=== PATIENT | male | born 1980 | race Caucasian/White ===

== ENCOUNTER 2021-06-06 18:55 | Inpatient (IN) | payer MEDICAID, SELFPAY ==
[~2021-06-06] VITALS: Ht 180.3 cm; Wt 119.1 kg
--- NOTE | 2021-06-06 19:00 | NUR ---
Patient to ER bed 3 to gown for evaluation. Side rails up.
--- NOTE | 2021-06-06 19:05 | NUR ---
DR LUGO IN TO ASSESS
--- NOTE | 2021-06-06 19:08 | NUR ---
Patient BIB by family from home. C/O chest pain x today. Patient reported, had chest pain since 0200 AM today, Hx CHF (6 months ago and COVID-19 positive) A/O,X4, left chest pain, pain rate 7/10, per patient weakness, place patient on desk monitor and pulse ox, on canula 2 L/min.
--- NOTE | 2021-06-06 19:21 | NUR ---
X-ray at bedside.
[2021-06-06 19:23] VITALS: BP_SYST 181
[2021-06-06] MEDS ORDERED: ASPIRIN 325 MG TABLET (ECOTRIN) PO ONE (19:30)
[2021-06-06] MEDS ORDERED: HYDROcodone/ACETAMIN 5-325 MG TAB (NORCO/ VICODIN) PO ONE (19:30)
--- NOTE | 2021-06-06 19:34 | NUR ---
Blood for labwork drawn from instructor trainer canine service. Patient tolerated well.
[2021-06-06 19:54] LABS: BASOPHILS # (AUTO) 0.1 K/uL (0.0-0.2); BASOPHILS % (AUTO) 0.7 % (0.0-2.0); EOSINOPHILS # (AUTO) 0.1 K/uL (0.0-0.4); EOSINOPHILS % (AUTO) 0.4 % (0.0-4.0); HEMATOCRIT 27.1 % (36-54); HEMOGLOBIN 9.4 g/dL (14.0-18.0); LYMPHOCYTES # (AUTO) 0.9 K/uL (1.0-5.5); MEAN CORPUSCULAR HEMOGLOBIN 30 pg (27-31); MEAN CORPUSCULAR HGB CONC 35 % (32-36); MEAN CORPUSCULAR VOLUME 87 fL (79.0-98.0); MONOCYTES # (AUTO) 1.1 K/uL (0.0-1.0); NEUTROPHILS # (AUTO) 10.2 K/uL (1.8-7.7); NEUTROPHILS % (AUTO) 82.9 % (40.0-70.0); PLATELET COUNT (AUTO) 192 K/uL (130-430); RED BLOOD CELL COUNT(AUTO) 3.11 MIL/uL (4.2-6.2); RED CELL DISTRIBUTION WIDTH 13.8 % (9.0-15.0); WHITE BLOOD COUNT (AUTO) 12.4 K/uL (4.8-10.8)
--- NOTE | 2021-06-06 22:10 | NUR ---
Dr. Underwood at bedside to exam patient.
[2021-06-06 22:20] LABS: CALCIUM 7.9 mg/dL (8.4-11.0)
[2021-06-06 22:25] LABS: ALBUMIN 2.6 g/dL (3.4-4.8); TOTAL BILIRUBIN 0.7 mg/dL (0.0-1.0)
[2021-06-06] MEDS ORDERED: cloNIDine HCL 0.1 MG TABLET PO PRN (22:30)
[2021-06-06] MEDS ORDERED: PANTOPRAZOLE SODIUM 40 MG TAB PO ONE (22:30)
[2021-06-06] MEDS ORDERED: NITROGLYCERIN 1 INCH (GM) OINT. TP ONE (22:30)
[2021-06-06] MEDS ORDERED: MAG-AL HYDROX/SIMETH 30 ML UDC PO PRN (22:30)
[2021-06-06 22:40] LABS: CREATININE 7.95 mg/dL (0.55-1.30); POTASSIUM 2.2 mmol/L (3.5-5.1)
--- NOTE | 2021-06-06 22:55 | NUR ---
Dr. Underwood at bedside and explain lab results and treatment plan.
[2021-06-06] MEDS ORDERED: KCL 20 mEq in 100 mL (PREMIX) 100 ML IV ONE (23:00)
[2021-06-06] MEDS ORDERED: CARVEDILOL 12.5 MG TABLET (COREG) PO ONE (23:00)
[2021-06-06] MEDS ORDERED: ENOXAPARIN SODIUM 30 MG/0.3 ML SYRINGE SUBCUT SCH (23:00)
[2021-06-06] MEDS ORDERED: POTASSIUM CHLORIDE 20 MEQ in NS 250 ML IV ONE (23:00)
[2021-06-06] MEDS ORDERED: POTASSIUM CHLORIDE 20 MEQ TAB.PRT.SR PO ONE (23:00)
--- NOTE | 2021-06-06 23:01 | NUR ---
COVID-19 swab collected and sent to lab.
[2021-06-06] MEDS ORDERED: CARV12.548 PO (23:12)
[2021-06-06] MEDS ORDERED: CLON0.5T4 PO (23:12)
[2021-06-06] MEDS ORDERED: HYDR-4037 PO (23:12)
[2021-06-06] MEDS ORDERED: TORS20TA23 PO (23:12)
[2021-06-06] MEDS ORDERED: NIFE20CA PO (23:12)
--- NOTE | 2021-06-06 23:12 | NUR ---
Medication reconciliation completed with information provided by patient. Any prior medication reconciliation on file was reviewed and corrected.
--- NOTE | 2021-06-06 23:22 | NUR ---
Called Dr. Underwood reported critical lab results.
[2021-06-06 23:23] LABS: PROTHROMBIN TIME 10.3 SECS (9.5-12.5)
[2021-06-06] MEDS ORDERED: HEPARIN SODIUM,PORCINE 2000 UNITS/0.4 ML BOLUS IVP PRN (23:45)
[2021-06-06] MEDS ORDERED: HEPARIN SODIUM,PORCINE 5,000 UNITS/ML VIAL IV ONE (23:45)
[2021-06-06] MEDS ORDERED: HEPARIN 25,000 UNITS in 250 ML PREMIX IV PRN (23:45)
[2021-06-06] MEDS ORDERED: HEPARIN SODIUM,PORCINE 3000 UNITS/0.6 ML BOLUS IVP PRN (23:45)
--- NOTE | 2021-06-06 23:58 | NUR ---
Patient will be admitted to care of Dr. Underwood. Admitted to TELE unit. Will go to room 107A. Belongings list completed. Complete and up to date summary report printed. SBAR report to be given at bedside with opportunity for questions.
[2021-06-07] VITALS (9 sets, daily range): BP systolic 136–211
--- NOTE | 2021-06-07 00:15 | NUR ---
ADMIT NOTE Received pt from ER to the floor with a diagnosis of CHEST PAIN. Admission process initiated. patient oriented to pain management, safety and call light-teach back done.
[2021-06-07] MEDS: ACETAMINOPHEN 325 MG TABLET PO PRN ×3 (00:48→23:55)
--- NOTE | 2021-06-07 01:13 | NUR ---
HEPARIN HEPARIN DRIP INITIATED ORDERED. POSSIBLE RISKS OF HEPARIN INFUSION DISCUSSED WITH PATIENT AND INSTRUCTED TO REPORT IMMEDIATELY TO STAFF ANY S/S OF BLEEDING. PATIENT VERBALIZES UNDERSTANDING. ORDERED FOLLOW UP PTT AFTER 6 HOURS.
--- NOTE | 2021-06-07 01:31 | NUR ---
CARDIO CONSULT Consult for Dr. Kemp was called, RE: chest pain JAVIER Jett
--- NOTE | 2021-06-07 01:31 | NUR ---
NEPHRO CONSULT Consult for Dr. Davenport was called, RE: Renal Failure JAVIER Jett
--- NOTE | 2021-06-07 01:41 | NUR ---
TROP RECEIVED TROPONIN RESULTS FROM LAB 0.[address] GARCIA.
--- NOTE | 2021-06-07 01:57 | NUR ---
Paged Dr. Underwood [phone] JAVIER Liu Addendum: 06/07/21 at 0219 by Lita Mcwilliams RN 2nd page for Dr. Underwood s/w Gene- she did connected the call
--- NOTE | 2021-06-07 02:18 | NUR ---
NOTIFICATION SPOKE WITH DR. GARCIA MADE AWARE OF TROPONIN RESULTS. NO NEW ORDER GIVEN.
--- NOTE | 2021-06-07 05:55 | NUR ---
URINE URINE SPECIMEN SENT TO LAB FOR DRUG SCREEN AND URINALYSIS.
[2021-06-07 06:24] LABS: BILIRUBIN,URINE NEGATIVE (NEGATIVE); BLOOD, URINE NEGATIVE (NEGATIVE); CLARITY/URINE CLEAR (CLEAR); COLOR,URINE YELLOW (YELLOW); GLUCOSE,URINE TRACE (NEGATIVE); KETONES,URINE NEGATIVE (NEGATIVE); LEUKOCYTE ESTERASE ,URINE NEGATIVE (NEGATIVE); NITRITE, URINE NEGATIVE (NEGATIVE); PROTEIN URINE 2+ (NEGATIVE); UROBILINOGEN,URINE 0.2 (0.2-1.0)
[2021-06-07 06:29] LABS: RBC,URINE 0-3 /HPF (0-3); WBC,URINE 0-3 /HPF (0-3)
[2021-06-07 06:30] LABS: BACTERIA,URINE FEW /HPF (None Seen)
[2021-06-07 06:33] LABS: BARBITURATE, URINE NEGATIVE (NEG <=200); BENZODIAZEPINE, URINE NEGATIVE (NEG <=150); CANNABINOID, URINE NEGATIVE (NEG <=50); COCAINE, URINE NEGATIVE (NEG <=150); METHAMPHETAMINES SCREEN,URINE POSITIVE (NEG <=500); OPIATE, URINE NEGATIVE (NEG <=100); PHENCYCLIDINE SCREEN,URINE NEGATIVE (NEG <=25); UR TRICYCLIC ANTIDEPRESSANTS NEGATIVE (NEG <=300); URINE AMPHETAMINE NEGATIVE (NEG <=500); URINE METHADONE NEGATIVE (NEG <=200); URINE OXYCODONE SCREEN NEGATIVE (NEG <=100); URINE PROPOXYPHENE SCREEN NEGATIVE (NEG <=300)
--- NOTE | 2021-06-07 06:55 | NUR ---
CLOSING NOTES PATIENT AWAKE IN BED. NO DISTRESS NOTED. PATIENT NEEDS ATTENDED. CALL LIGHT WITH IN REACH.
[2021-06-07] MEDS: PANTOPRAZOLE SODIUM 40 MG TAB PO SCH ×2 (08:03→20:54)
[2021-06-07] MEDS: CARVEDILOL 12.5 MG TABLET (COREG) PO SCH ×2 (08:04→20:53)
[2021-06-07 08:06] LABS: ALBUMIN 2.4 g/dL (3.4-4.8); CALCIUM 7.9 mg/dL (8.4-11.0); TOTAL BILIRUBIN 0.7 mg/dL (0.0-1.0)
--- NOTE | 2021-06-07 08:07 | NUR ---
INITIAL ROUNDS Received pt AAOx4, no s/s resp distress, c/o mild chest pain-will give pain medication as ordered. Plan of care for the day reviewed with pt-pt verbalized his understanding. Heparin drip infusing well to ANGELA at ordered rate with no S/S infiltration to site. Pain management, disease process, skin and safety discussed-teach back done. Call light within reach.
[2021-06-07 08:18] LABS: BASOPHILS # (AUTO) 0.1 K/uL (0.0-0.2); BASOPHILS % (AUTO) 0.7 % (0.0-2.0); EOSINOPHILS # (AUTO) 0.2 K/uL (0.0-0.4); EOSINOPHILS % (AUTO) 1.7 % (0.0-4.0); HEMATOCRIT 25.4 % (36-54); HEMOGLOBIN 8.7 g/dL (14.0-18.0); LYMPHOCYTES % (AUTO) 10.8 % (20.5-51.5); MEAN CORPUSCULAR HEMOGLOBIN 30 pg (27-31); MEAN CORPUSCULAR HGB CONC 34 % (32-36); MEAN CORPUSCULAR VOLUME 87 fL (79.0-98.0); MONOCYTES # (AUTO) 0.9 K/uL (0.0-1.0); MONOCYTES % (AUTO) 9.8 % (1.7-9.3); NEUTROPHILS # (AUTO) 7.4 K/uL (1.8-7.7); PLATELET COUNT (AUTO) 186 K/uL (130-430); RED BLOOD CELL COUNT(AUTO) 2.92 MIL/uL (4.2-6.2); RED CELL DISTRIBUTION WIDTH 14.1 % (9.0-15.0); WHITE BLOOD COUNT (AUTO) 9.6 K/uL (4.8-10.8)
--- NOTE | 2021-06-07 09:18 | NUR ---
TO VQ SCAN Pt left floor via wheelchair, accompanied by RN due to Heparin drip to Ct in no distress.
[2021-06-07 09:37] LABS: CREATININE 8.42 mg/dL (0.55-1.30); POTASSIUM 2.3 mmol/L (3.5-5.1)
--- NOTE | 2021-06-07 10:20 | NUR ---
BACK FROM VQ SCAN Pt back from scan in no distress. Heparin drip D/C'd as ordered by Dr. Kemp. Ultrasound now in room to do renal ultrasound.
[2021-06-07] MEDS ORDERED: POTASSIUM CHLORIDE 20 MEQ TAB.PRT.SR PO ONE ×2 (11:45→15:30)
[2021-06-07] MEDS ORDERED: KETOROLAC TROMETHAMINE 10 MG TABLET (TORADOL) PO SCH (15:15)
[2021-06-07] MEDS ORDERED: clonazePAM 0.5 MG TABLET ONE (15:55)
--- NOTE | 2021-06-07 15:59 | NUR ---
ANXIETY/MD Pt c/o feeling very anxious-stating he can not breath, note pt's SAO2 95% on O2 6L via oxymizer. Pt given Klonopin as ordered. Pt HOB elevated and pt educated and encouraged to take slow, deep breaths. Light turned down low and door closed to promote rest. Call light within reach. Dr. Davenport saw pt and informed pt that if his labs do not improve he may need to go on dialysis. New labs ordered.
--- NOTE | 2021-06-07 16:36 | NUR ---
COUGHING UP BLOOD/SOB Pt c/o shortness of breath, noted pt's SAO2 96% on O2 6L via oxymizer. Pt just coughed up frothy, bright red blood. MD called, awaiting call back.
--- NOTE | 2021-06-07 17:32 | NUR ---
CONSULTATION PAGED/CALLED Reason for Consultation: [] HEMOPTYSIS Person Who was Notified: [] UNIQUE Consulting Physician: [] DR ASCENCIO Wood Heel Attacher Specialty: [] PULMO Ordering Physician: [] DR GARCIA
--- NOTE | 2021-06-07 17:50 | NUR ---
RESP/MD Pt c/o shortness of breath, SAO2 96% on O2 6L via Oxymizer, pt coughing up small droplets of thin, frothy bright red blood. Dr. Underwood informed and shown blood. Dr. Nunes (pulmonary consult informed and order given fro stat CT scan of chest without contrast ordered-pt now on his way to CT.
[2021-06-07] MEDS ORDERED: IPRATROPIUM/ALBUTEROL SULFATE 3 ML AMPUL.NEB (DUONEB) INH PRN (18:00)
[2021-06-07 18:40] LABS: BASOPHILS # (AUTO) 0.1 K/uL (0.0-0.2); BASOPHILS % (AUTO) 0.2 % (0.0-2.0); EOSINOPHILS # (AUTO) 0.2 K/uL (0.0-0.4); EOSINOPHILS % (AUTO) 1.1 % (0.0-4.0); HEMATOCRIT 27.6 % (36-54); HEMOGLOBIN 9.4 g/dL (14.0-18.0); LYMPHOCYTES # (AUTO) 0.7 K/uL (1.0-5.5); LYMPHOCYTES % (AUTO) 3.1 % (20.5-51.5); MEAN CORPUSCULAR HEMOGLOBIN 30 pg (27-31); MEAN CORPUSCULAR HGB CONC 34 % (32-36); MEAN CORPUSCULAR VOLUME 87 fL (79.0-98.0); MONOCYTES % (AUTO) 4.6 % (1.7-9.3); PLATELET COUNT (AUTO) 231 K/uL (130-430); RED BLOOD CELL COUNT(AUTO) 3.16 MIL/uL (4.2-6.2); RED CELL DISTRIBUTION WIDTH 14.2 % (9.0-15.0); WHITE BLOOD COUNT (AUTO) 20.9 K/uL (4.8-10.8)
[2021-06-07 18:50] LABS: CALCIUM 7.9 mg/dL (8.4-11.0); POTASSIUM 3.2 mmol/L (3.5-5.1)
[2021-06-07 18:54] LABS: CREATININE 8.39 mg/dL (0.55-1.30)
--- NOTE | 2021-06-07 18:59 | NUR ---
RESP/ Pt seen by RT, given breathing treatment, pt now on O2 15L via NRB mask. Pt sitting up in bed, remains anxious. Spoke with Dr. Nunes and informed him of pt's ABG results and informed him that pt will be transferred to ICU per Dr. Underwood's order due to pt c/o shortness of breath and pt desaturation to 81% SAO2 when he laid down flat.
[2021-06-07] MEDS: IPRATROPIUM/ALBUTEROL SULFATE 3 ML AMPUL.NEB (DUONEB) INH SCH ×2 (19:00→23:32)
--- NOTE | 2021-06-07 19:25 | NUR ---
PT TRANSFERRED TO ICU At 1915 pt transferred to ICU Bed 6 on 15L NRB mask via wheelchair. Pt placed on ICU bed and placed on 15L O2 via NRB mask. Pt remains anxious. Report given to IRRIGATION EQUIPMENT REMOVER. Pt's belongings taken to room.
--- NOTE | 2021-06-07 19:30 | NUR ---
REFUSED MED Pt refused 40 mEq K+ tablets, Dr. Underwood called, awaiting call back.
[2021-06-07] MEDS ORDERED: hydrALAZINE HCL 20 MG/ML VIAL IVP PRN (20:15)
[2021-06-07] MEDS ORDERED: hydrALAZINE HCL 10 MG TABLET ONE (20:29)
[2021-06-07] MEDS: MORPHINE 4 MG INJ. 4 MG/ML VIAL IVP PRN (20:49)
[2021-06-07 21:00] LABS: INR 0.9 (0.80-1.20); PROTHROMBIN TIME 9.7 SECS (9.5-12.5)
[2021-06-07] MEDS ORDERED: hydrALAZINE HCL 10 MG TABLET PO SCH ×2 (21:00)
[2021-06-07] MEDS ORDERED: clonazePAM 0.5 MG TABLET PO SCH (21:00)
[2021-06-07] MEDS ORDERED: ENOXAPARIN SODIUM 40 MG/0.4 ML SYRINGE SUBCUT SCH (21:00)
[2021-06-07] MEDS ORDERED: CARVEDILOL 12.5 MG TABLET (COREG) PO SCH (21:00)
--- NOTE | 2021-06-07 21:03 | NUR ---
[address] GARCIA SPOKE TO HIM WITH ORDERS MADE AND CARRIED OUT, SPOKE WITH DR VILLAGOMEZ HE WILL CALL BACK FOR LAB RESULTS MAY COME IN TONIGHT TO PLACE A HD CATH AWAITING FOR COAG RESULTS.
--- NOTE | 2021-06-07 21:04 | NUR ---
2030 CALLED DOT UPDATED AND ADVISED NO VISITING AT THIS TIME TILL COVID PCR RESULTS IN WITH NEGATIVE RESULTS.
--- NOTE | 2021-06-07 22:04 | NUR ---
2144 MOM KARL AG SPOKE TO HER UPSET BEC WERE TREATING THE SON PUI THEY DONT WANT THAT BUT EXPLAINED TO THEM BEC HE HAS PRESENTING COVID SYMPTOMS, TO BE SAFE WE HAVE TO WAIT FOR PCR RESULTS, THEY ARE MAD BEC WHY HE IS COUGHING THIS TIME HE CAME IN WITH SOB AND CHEST PAIN FOR HIS CHF THATS WHAT THEY KNOW. THEY ARE UNREALISTIC THEY DONT BELIEVE IN COVID AND THEY DONT WANT HIM TO GET A COVID VACCINE EITHER.
--- NOTE | 2021-06-07 22:08 | NUR ---
2150 S/B DR VILLAGOMEZ LAB RESULTS SEEN SPOKE TO PATIENT, ADVISED TO GET HD CATHETER PLACEMENT LOAN BY DR. LOWERY OR DR CHILDRESS NOTHING URGENT TONIGHT, CONT CURRENT TRETMENT AND MADE SOME ORDERS SEE CPOE.
[2021-06-07] MEDS ORDERED: PIPERACILLIN/TAZOBACTAM 2.25 GM VIAL IV ONE (23:06)
[2021-06-07] MEDS: PIPERACILLIN/TAZO 2.25G/DEX-IS 50 ML IV SCH (23:07)
[2021-06-07] MEDS: hydrALAZINE HCL 20 MG/ML VIAL IVP PRN (23:08)
[2021-06-07] MEDS ORDERED: *HEPARIN PER PHARMACY XX PRN (23:30)
[2021-06-08] VITALS (24 sets, daily range): BP systolic 152–209
[2021-06-08] MEDS: IPRATROPIUM/ALBUTEROL SULFATE 3 ML AMPUL.NEB (DUONEB) INH SCH ×5 (03:00→19:00)
[2021-06-08] MEDS ORDERED: PIPERACILLIN/TAZOBACTAM 2.25 GM VIAL IV ONE (03:35)
[2021-06-08] MEDS: hydrALAZINE HCL 20 MG/ML VIAL IVP PRN ×3 (04:57→21:40)
[2021-06-08] MEDS: PIPERACILLIN/TAZO 2.25G/DEX-IS 50 ML IV SCH ×3 (05:53→21:39)
[2021-06-08] MEDS: MORPHINE 4 MG INJ. 4 MG/ML VIAL IVP PRN ×3 (05:56→20:23)
[2021-06-08] MEDS: cloNIDine HCL 0.1 MG TABLET PO PRN ×3 (05:57→23:45)
--- NOTE | 2021-06-08 05:59 | NUR ---
PAGED FOR CONSULT ORDERING PHYSICIAN: REASON FOR CONSULT: SHANT CATH PLACEMENT DIALED: [phone] SPOKE TO: CALLED, DOCTOR DID NOT ADOPTION MANAGER AND CALL GOT DISCONNECTED. WILL ENDORSE TO RELIEF LUNCHROOM AIDE
[2021-06-08 06:19] LABS: BASOPHILS # (AUTO) 0.1 K/uL (0.0-0.2); BASOPHILS % (AUTO) 0.4 % (0.0-2.0); EOSINOPHILS % (AUTO) 0.2 % (0.0-4.0); HEMATOCRIT 24.8 % (36-54); HEMOGLOBIN 8.4 g/dL (14.0-18.0); LYMPHOCYTES # (AUTO) 0.8 K/uL (1.0-5.5); LYMPHOCYTES % (AUTO) 5.2 % (20.5-51.5); MEAN CORPUSCULAR HEMOGLOBIN 30 pg (27-31); MEAN CORPUSCULAR HGB CONC 34 % (32-36); MEAN CORPUSCULAR VOLUME 88 fL (79.0-98.0); MONOCYTES # (AUTO) 0.8 K/uL (0.0-1.0); NEUTROPHILS # (AUTO) 14.1 K/uL (1.8-7.7); NEUTROPHILS % (AUTO) 89.2 % (40.0-70.0); PLATELET COUNT (AUTO) 173 K/uL (130-430); RED BLOOD CELL COUNT(AUTO) 2.83 MIL/uL (4.2-6.2); RED CELL DISTRIBUTION WIDTH 13.9 % (9.0-15.0); WHITE BLOOD COUNT (AUTO) 15.8 K/uL (4.8-10.8)
[2021-06-08 06:44] LABS: ALBUMIN 2.2 g/dL (3.4-4.8); TOTAL BILIRUBIN 0.7 mg/dL (0.0-1.0)
--- NOTE | 2021-06-08 06:52 | NUR ---
2892 DR VILLAGOMEZ CALLED ASK FOR PT UPDATE ADVISED TO CALL HIM DI WHEN LAB RESULTS IN AND ASK DR. ASCENCIO TO PUT A SHANT CATH IN AM, CALLED DR LOWERY FOR CONSULT IN AM FOR SHANT CATH PLACEMENT NO ANSWER.
--- NOTE | 2021-06-08 07:13 | NUR ---
0600 REMAINS COUGHING ON AND OFF BUT NO MORE BLOOD STREAK [facility] EARLY LAST NIGHT COUGHING WITH BLOOD STREAK DR. GARCIA AWARE.
[2021-06-08 07:19] LABS: CREATININE 8.58 mg/dL (0.55-1.30); POTASSIUM 2.7 mmol/L (3.5-5.1)
[2021-06-08] MEDS: PANTOPRAZOLE SODIUM 40 MG TAB PO SCH ×2 (08:11→20:19)
[2021-06-08] MEDS: CARVEDILOL 12.5 MG TABLET (COREG) PO SCH ×2 (08:19→20:21)
[2021-06-08] MEDS ORDERED: DIATR MEGLU/DIATRIZ SOD 30 ML SOLUTION PO ONE (08:28)
[2021-06-08] MEDS ORDERED: hydrALAZINE HCL 25 MG TABLET PO SCH (09:00)
[2021-06-08] MEDS: POTASSIUM CHLORIDE 20 MEQ TAB.PRT.SR PO SCH ×2 (09:42→20:20)
--- NOTE | 2021-06-08 10:17 | NUR ---
1000 PT PLACED ON 12L OXYMZER PER DR MURPHY TITRATION OFF HI FLOW ORDERS. SAT 94% HR 80 RR 27. RN AWARE, WILL CONT TO MONITOR. Addendum: 06/08/21 at 1020 by Daniella Branham RT Amended: Links added. Addendum: 06/08/21 at 1155 by Daniella Branham RT CORRECTION: PER DR ASCENCIO.
[2021-06-08] MEDS: hydrALAZINE HCL 25 MG TABLET PO SCH ×2 (15:23→20:20)
[2021-06-08] MEDS: AZITHROMYCIN 500 MG in NS 250 ML IV SCH (18:57)
[2021-06-09] VITALS (12 sets, daily range): BP systolic 129–172
[2021-06-09] MEDS: hydrALAZINE HCL 20 MG/ML VIAL IVP PRN (03:31)
[2021-06-09] MEDS: PIPERACILLIN/TAZO 2.25G/DEX-IS 50 ML IV SCH (05:11)
[2021-06-09] MEDS: MORPHINE 4 MG INJ. 4 MG/ML VIAL IVP PRN ×2 (05:49→13:26)
[2021-06-09 06:33] LABS: BASOPHILS # (AUTO) 0.1 K/uL (0.0-0.2); BASOPHILS % (AUTO) 0.6 % (0.0-2.0); EOSINOPHILS # (AUTO) 0.3 K/uL (0.0-0.4); EOSINOPHILS % (AUTO) 2.3 % (0.0-4.0); HEMOGLOBIN 7.3 g/dL (14.0-18.0); LYMPHOCYTES # (AUTO) 0.7 K/uL (1.0-5.5); LYMPHOCYTES % (AUTO) 6.1 % (20.5-51.5); MEAN CORPUSCULAR HEMOGLOBIN 31 pg (27-31); MEAN CORPUSCULAR HGB CONC 34 % (32-36); MEAN CORPUSCULAR VOLUME 90 fL (79.0-98.0); MONOCYTES # (AUTO) 0.8 K/uL (0.0-1.0); MONOCYTES % (AUTO) 7.1 % (1.7-9.3); NEUTROPHILS # (AUTO) 9.2 K/uL (1.8-7.7); NEUTROPHILS % (AUTO) 83.9 % (40.0-70.0); PLATELET COUNT (AUTO) 162 K/uL (130-430); RED BLOOD CELL COUNT(AUTO) 2.37 MIL/uL (4.2-6.2); RED CELL DISTRIBUTION WIDTH 13.8 % (9.0-15.0)
[2021-06-09 06:41] LABS: ALBUMIN 2.2 g/dL (3.4-4.8); CALCIUM 7.9 mg/dL (8.4-11.0); PHOSPHORUS 6.3 mg/dL (2.7-4.5); POTASSIUM 3.3 mmol/L (3.5-5.1); TOTAL BILIRUBIN 0.6 mg/dL (0.0-1.0)
[2021-06-09] MEDS: IPRATROPIUM/ALBUTEROL SULFATE 3 ML AMPUL.NEB (DUONEB) INH SCH ×2 (07:00→11:00)
[2021-06-09 07:23] LABS: HEMATOCRIT 21.3 % (36-54)
[2021-06-09 07:24] LABS: CREATININE 8.61 mg/dL (0.55-1.30)
[2021-06-09] MEDS: POTASSIUM CHLORIDE 20 MEQ TAB.PRT.SR PO SCH ×2 (08:22→21:00)
[2021-06-09] MEDS: CARVEDILOL 12.5 MG TABLET (COREG) PO SCH ×2 (08:25→21:00)
[2021-06-09] MEDS: PANTOPRAZOLE SODIUM 40 MG TAB PO SCH ×2 (08:25→21:00)
[2021-06-09] MEDS: hydrALAZINE HCL 25 MG TABLET PO SCH ×2 (08:26→21:00)
--- NOTE | 2021-06-09 09:35 | NUR ---
RT NOTES Changed sterile water, titrated FIO2 to 0.80. Will monitor pt. RN notified.
[2021-06-09] MEDS: cloNIDine HCL 0.1 MG TABLET PO PRN (11:42)
--- NOTE | 2021-06-09 13:50 | NUR ---
RT NOTES FIO2 TO 0.50
[2021-06-09] MEDS: AZITHROMYCIN 500 MG in NS 250 ML IV SCH (18:00)
[2021-06-09] MEDS ORDERED: ONDANSETRON HCL 4 MG/2 ML VIAL IVP PRN (19:45)
[2021-06-09] MEDS ORDERED: cloNIDine HCL 0.3 MG/24 HR PATCH.TDWK TD SCH (20:00)
[2021-06-09] MEDS ORDERED: ONDANSETRON HCL 4 MG/2 ML VIAL ONE (20:01)
[2021-06-09] MEDS ORDERED: cloNIDine HCL 0.3 MG/24 HR PATCH.TDWK TD ONE (20:05)
[2021-06-09 23:31] LABS: TPROTEIN U,24HR 7034.4 mg/24HR (0-130)
[2021-06-09] MEDS: clonazePAM 0.5 MG TABLET PO PRN (23:56)
[2021-06-10] VITALS (19 sets, daily range): BP systolic 147–183
[2021-06-10] MEDS: hydrALAZINE HCL 20 MG/ML VIAL IVP PRN ×4 (02:53→18:03)
[2021-06-10] MEDS: IPRATROPIUM/ALBUTEROL SULFATE 3 ML AMPUL.NEB (DUONEB) INH SCH ×6 (03:00→23:00)
[2021-06-10] MEDS: MORPHINE 4 MG INJ. 4 MG/ML VIAL IVP PRN ×4 (03:33→20:47)
[2021-06-10] MEDS: clonazePAM 0.5 MG TABLET PO PRN ×2 (06:21→11:26)
[2021-06-10] MEDS: PIPERACILLIN/TAZO 2.25G/DEX-IS 50 ML IV SCH ×2 (06:22→14:31)
[2021-06-10 06:23] LABS: BASOPHILS # (AUTO) 0.1 K/uL (0.0-0.2); BASOPHILS % (AUTO) 1.1 % (0.0-2.0); EOSINOPHILS # (AUTO) 0.1 K/uL (0.0-0.4); EOSINOPHILS % (AUTO) 1.3 % (0.0-4.0); HEMATOCRIT 22.5 % (36-54); HEMOGLOBIN 7.7 g/dL (14.0-18.0); LYMPHOCYTES # (AUTO) 0.7 K/uL (1.0-5.5); LYMPHOCYTES % (AUTO) 7.5 % (20.5-51.5); MEAN CORPUSCULAR HEMOGLOBIN 30 pg (27-31); MEAN CORPUSCULAR HGB CONC 34 % (32-36); MEAN CORPUSCULAR VOLUME 89 fL (79.0-98.0); MONOCYTES # (AUTO) 0.6 K/uL (0.0-1.0); MONOCYTES % (AUTO) 7.3 % (1.7-9.3); NEUTROPHILS # (AUTO) 7.2 K/uL (1.8-7.7); NEUTROPHILS % (AUTO) 82.8 % (40.0-70.0); PLATELET COUNT (AUTO) 154 K/uL (130-430); RED BLOOD CELL COUNT(AUTO) 2.54 MIL/uL (4.2-6.2); RED CELL DISTRIBUTION WIDTH 14.2 % (9.0-15.0); WHITE BLOOD COUNT (AUTO) 8.8 K/uL (4.8-10.8)
[2021-06-10 07:09] LABS: CALCIUM 7.7 mg/dL (8.4-11.0); POTASSIUM 3.4 mmol/L (3.5-5.1)
[2021-06-10 08:00] LABS: CREATININE 8.59 mg/dL (0.55-1.30)
[2021-06-10] MEDS ORDERED: cloNIDine HCL 0.3 MG/24 HR PATCH.TDWK TD SCH (09:00)
[2021-06-10] MEDS: POTASSIUM CHLORIDE 20 MEQ TAB.PRT.SR PO SCH (09:35)
[2021-06-10] MEDS: CARVEDILOL 12.5 MG TABLET (COREG) PO SCH ×2 (09:35→22:42)
[2021-06-10] MEDS: PANTOPRAZOLE SODIUM 40 MG TAB PO SCH (09:35)
[2021-06-10] MEDS ORDERED: EPOETIN ALFA 10,000 UNITS/ML VIAL SUBCUT ONE (09:45)
[2021-06-10] MEDS: hydrALAZINE HCL 25 MG TABLET PO SCH ×3 (10:41→22:42)
[2021-06-10 12:46] LABS: TOTAL IRON BIND. CAPACITY 251 ug/dL (250-450)
[2021-06-10] MEDS: cloNIDine HCL 0.1 MG TABLET PO PRN ×2 (14:35→18:03)
[2021-06-10] MEDS ORDERED: BISACODYL 5 MG TABLET.DR (DULCOLAX) PO ONE (15:00)
[2021-06-10] MEDS ORDERED: HEPARIN SODIUM,PORCINE 5,000 UNITS/ML VIAL ONE (16:29)
--- NOTE | 2021-06-10 17:00 | NUR ---
RECEIVED REPORT FROM ICU NURSE AMARILIS USING SBAR REPORTING. PATIENT STABLE AT THIS TIME.
--- NOTE | 2021-06-10 17:45 | NUR ---
TRANSFER TO [facility]: PT TRANSFERRED TO [facility], NC @ 3L/MIN, TOLERATING WELL. ALL BELONGINGS TAKEN WITH PT. REPORT GIVEN TO RN USING SBAR REPORTING. ALL SAFETY PRECAUTIONS ENFORCED. AWAITING DR LOWERY FOR HD CATH PLACEMENT.
--- NOTE | 2021-06-10 18:20 | NUR ---
CLOSING NOTES: PATIENT IS AWAKE LAYING DOWN IN BED. TOLERATED OXYGEN ON 2L NASAL CANNULA WITH NO DISTRESS NOTED. IV LINE PATENT AND INTACT WITH NO INFILTRATION NOTED. SAFETY, FALL, AND ASPIRATION PRECAUTIONS ARE IN PLACE. BED LOCKED IN LOWEST POSITION AND CALL LIGHT IN REACH. WILL ENDORSE PATIENT CARE AND HEPARIN FOR MOLECULAR SPECTROSCOPIST NURSE.
[2021-06-10] MEDS: AZITHROMYCIN 500 MG in NS 250 ML IV SCH (18:26)
--- NOTE | 2021-06-10 20:04 | NUR ---
SPOKE WITH DR. BENNETT REGARDING HEMODIALYSIS ORDER CLARIFIED REGARDING ORDERS: INFORMED DOCTOR OF PROGRESS NOTES OF DR. VILLAGOMEZ STATING SHANT CATHETER INSERTION AND HEMODIALYSIS TODAY 06/10/2021, BUT WHEN OPENING THE HEMODIALYSIS ORDER, STATES FOR HEMODIALYSIS 06/11/2021. ORDERS FOR HEMODIALYSIS TONIGHT.
--- NOTE | 2021-06-10 22:00 | NUR ---
ROUNDING NOTES Patient resting in bed - no s/s pain or distress noted. Respirations even and unlabored - head of bed elevated 2L. IV site patent - no s/s redness, infection, or infiltration. Bed locked and in lowest position. De catheter RIJ secure. Call light within reach.
[2021-06-11] VITALS: BP_SYST 213
[2021-06-11] MEDS: cloNIDine HCL 0.1 MG TABLET PO PRN
[2021-06-11] MEDS: PANTOPRAZOLE SODIUM 40 MG TAB PO SCH ×3 (00:19→21:10)
[2021-06-11] MEDS: POTASSIUM CHLORIDE 20 MEQ TAB.PRT.SR PO SCH ×3 (00:19→21:10)
[2021-06-11] MEDS: PIPERACILLIN/TAZO 2.25G/DEX-IS 50 ML IV SCH ×4 (00:20→21:10)
[2021-06-11] MEDS: clonazePAM 0.5 MG TABLET PO PRN ×3 (00:20→21:10)
[2021-06-11 02:00] VITALS: BP_SYST 133
[2021-06-11] MEDS: IPRATROPIUM/ALBUTEROL SULFATE 3 ML AMPUL.NEB (DUONEB) INH SCH ×5 (03:30→19:50)
[2021-06-11 06:28] LABS: ALBUMIN 2.3 g/dL (3.4-4.8); BASOPHILS % (AUTO) 0.6 % (0.0-2.0); CREATININE 6.87 mg/dL (0.55-1.30); EOSINOPHILS # (AUTO) 0.3 K/uL (0.0-0.4); EOSINOPHILS % (AUTO) 3.1 % (0.0-4.0); HEMATOCRIT 24.8 % (36-54); HEMOGLOBIN 8.3 g/dL (14.0-18.0); LYMPHOCYTES # (AUTO) 0.6 K/uL (1.0-5.5); LYMPHOCYTES % (AUTO) 7.5 % (20.5-51.5); MEAN CORPUSCULAR HEMOGLOBIN 30 pg (27-31); MEAN CORPUSCULAR HGB CONC 34 % (32-36); MEAN CORPUSCULAR VOLUME 88 fL (79.0-98.0); MONOCYTES # (AUTO) 0.7 K/uL (0.0-1.0); MONOCYTES % (AUTO) 8.5 % (1.7-9.3); NEUTROPHILS # (AUTO) 6.9 K/uL (1.8-7.7); NEUTROPHILS % (AUTO) 80.3 % (40.0-70.0); PLATELET COUNT (AUTO) 169 K/uL (130-430); POTASSIUM 3.5 mmol/L (3.5-5.1); RED BLOOD CELL COUNT(AUTO) 2.81 MIL/uL (4.2-6.2); TOTAL BILIRUBIN 0.7 mg/dL (0.0-1.0); WHITE BLOOD COUNT (AUTO) 8.6 K/uL (4.8-10.8)
--- NOTE | 2021-06-11 07:29 | NUR ---
CLOSING NOTES Patient resting in bed - no s/s pain or distress noted. Respirations even and unlabored - head of bed elevated. IV site patent - no s/s redness, infection, or infiltration. Bed locked and in lowest position. De catheter RIJ secure. Call light within reach.
--- NOTE | 2021-06-11 07:40 | NUR ---
OPENING NOTES: RECEIVED REPORT FROM FISHING BOAT MATE NURSE. PATIENT IS AWAKE LAYING DOWN IN BED. TOLERATED OXYGEN ON ROOM AIR WITH NO DISTRESS NOTED. RIGHT IJ SHANT CATH PATENT, INTACT, CLEAN, AND DRY. IV LINE PATENT AND INTACT WITH NO INFILTRATION NOTED. PATIENT STABLE AT THIS TIME. SAFETY, FALL, AND ASPIRATION PRECAUTIONS ARE IN PLACE. BED LOCKED IN LOWEST POSITION AND CALL LIGHT IN REACH. WILL CONTINUE TO MONITOR PATIENT FOR ANY CHANGES.
[2021-06-11 08:00] VITALS: BP_SYST 161
[2021-06-11] MEDS: CARVEDILOL 12.5 MG TABLET (COREG) PO SCH ×2 (08:26→21:09)
[2021-06-11] MEDS: amLODIPine BESYLATE 10 MG TABLET PO SCH (08:26)
[2021-06-11] MEDS: hydrALAZINE HCL 25 MG TABLET PO SCH ×3 (08:27→21:10)
--- NOTE | 2021-06-11 08:53 | NUR ---
JILL GARCIA Addendum: 06/11/21 at 2214 by Avani Bray CNA ERROR WRONG TIME 2052
[2021-06-11] MEDS: MORPHINE 4 MG INJ. 4 MG/ML VIAL IVP PRN ×3 (11:05→22:23)
[2021-06-11 13:07] VITALS: BP_SYST 152
[2021-06-11 16:00] VITALS: BP_SYST 161
--- NOTE | 2021-06-11 16:58 | NUR ---
Dietitian Recommendations * Recommend Renal diet * Consider dietary consult for nutrition education prior to D/C LP, RD Please refer to Nutrition Assessment for details. Addendum: 06/11/21 at 1700 by Jena CAAL Amended: Links added.
--- NOTE | 2021-06-11 17:00 | NUR ---
HIGH ALERT NOTE: Called Dr. VILLAGOMEZ back at identified within the medical roster to verify physician authenticity.
[2021-06-11] MEDS ORDERED: HEPARIN SODIUM, PORCINE 10,000 UNITS/ 10 ML VIAL MC ONE ×2 (17:30→17:45)
[2021-06-11] MEDS ORDERED: HEPARIN SODIUM,PORCINE 5,000 UNITS/ML VIAL ONE (17:47)
[2021-06-11] MEDS: AZITHROMYCIN 500 MG in NS 250 ML IV SCH ×2 (18:00→21:10)
--- NOTE | 2021-06-11 18:00 | NUR ---
HELD ATB (AZITHROMYCIN) DUE TO PATIENT IS IN DIALYSIS. WILL ENDORSE TO SEWER PIPE SORTER NURSE TO GIVE THE ATB.
--- NOTE | 2021-06-11 18:40 | NUR ---
CLOSING NOTES: PATIENT IS AWAKE LAYING DOWN IN BED. TOLERATED OXYGEN ON 2L NASAL CANNULA WITH NO DISTRESS NOTED. IV LINE PATENT AND INTACT WITH NO INFILTRATION NOTED. SAFETY, FALL, AND ASPIRATION PRECAUTIONS REMAINED IN PLACE. BED LOCKED IN LOWEST POSITION AND CALL LIGHT IN REACH. WILL ENDORSE PATIENT CARE AND HEPARIN FOR WINDOWS APPLICATION PACKAGER NURSE.
[2021-06-11 20:00] VITALS: BP_SYST 154
--- NOTE | 2021-06-11 22:00 | NUR ---
ROUNDING NOTES Patient resting in bed - no s/s pain or distress noted. Respirations even and unlabored - head of bed elevated. IV site patent - no s/s redness, infection, or infiltration. Bed locked and in lowest position. Call light within reach.
--- NOTE | 2021-06-11 22:14 | NUR ---
PAGED \ PAGED DOCTOR RADHA
[2021-06-12] MEDS: IPRATROPIUM/ALBUTEROL SULFATE 3 ML AMPUL.NEB (DUONEB) INH SCH ×7 (00:05→22:27)
[2021-06-12 01:32] VITALS: BP_SYST 132
[2021-06-12] MEDS: PIPERACILLIN/TAZO 2.25G/DEX-IS 50 ML IV SCH ×3 (05:39→21:44)
[2021-06-12 06:43] LABS: BASOPHILS # (AUTO) 0.1 K/uL (0.0-0.2); BASOPHILS % (AUTO) 0.9 % (0.0-2.0); EOSINOPHILS # (AUTO) 0.5 K/uL (0.0-0.4); EOSINOPHILS % (AUTO) 6.8 % (0.0-4.0); HEMATOCRIT 23.8 % (36-54); HEMOGLOBIN 8.1 g/dL (14.0-18.0); LYMPHOCYTES % (AUTO) 13.3 % (20.5-51.5); MEAN CORPUSCULAR HEMOGLOBIN 30 pg (27-31); MEAN CORPUSCULAR HGB CONC 34 % (32-36); MEAN CORPUSCULAR VOLUME 89 fL (79.0-98.0); MONOCYTES # (AUTO) 0.7 K/uL (0.0-1.0); MONOCYTES % (AUTO) 9.5 % (1.7-9.3); NEUTROPHILS # (AUTO) 5.5 K/uL (1.8-7.7); NEUTROPHILS % (AUTO) 69.5 % (40.0-70.0); PLATELET COUNT (AUTO) 198 K/uL (130-430); RED BLOOD CELL COUNT(AUTO) 2.68 MIL/uL (4.2-6.2); RED CELL DISTRIBUTION WIDTH 14.2 % (9.0-15.0); WHITE BLOOD COUNT (AUTO) 7.8 K/uL (4.8-10.8)
--- NOTE | 2021-06-12 07:30 | NUR ---
OPENING NOTES: PATIENT RESTING IN BED. BREATHING EVEN AND NON LABORED. DENIES ANY DISCOMFORT AT THIS TIME. FALL SAFETY AND ASPIRATION MEASURES REINFORCED. WILL CONTINUE MONITOR PATIENT.
[2021-06-12 07:40] LABS: CREATININE 5.5 mg/dL (0.55-1.30); POTASSIUM 4.2 mmol/L (3.5-5.1)
[2021-06-12 08:07] LABS: HEPATITIS B SURFACE AG Negative (Negative); HEPATITIS C VIRUS AB <0.1 s/co ratio (0.0-0.9)
[2021-06-12] MEDS: hydrALAZINE HCL 25 MG TABLET PO SCH ×3 (08:42→21:43)
[2021-06-12] MEDS: PANTOPRAZOLE SODIUM 40 MG TAB PO SCH ×2 (08:42→21:42)
[2021-06-12] MEDS: POTASSIUM CHLORIDE 20 MEQ TAB.PRT.SR PO SCH (08:42)
[2021-06-12] MEDS: amLODIPine BESYLATE 10 MG TABLET PO SCH (08:43)
[2021-06-12] MEDS: CARVEDILOL 12.5 MG TABLET (COREG) PO SCH ×2 (08:43→21:43)
[2021-06-12 08:48] VITALS: BP_SYST 146
[2021-06-12] MEDS: clonazePAM 0.5 MG TABLET PO PRN (09:56)
--- NOTE | 2021-06-12 10:00 | NUR ---
RN NOTES: PATIENT C/O BEING ANXIOUS. NO S/S OF ACUTE DISTRESS NOTED. AT BEDSIDE. PRN MEDS GIVEN. FALL AND SAFETY MEASURES PROVIDED. CALL LIGHT WITHIN REACH.
[2021-06-12 12:00] VITALS: BP_SYST 149
[2021-06-12] MEDS: MORPHINE 4 MG INJ. 4 MG/ML VIAL IVP PRN ×2 (14:25→21:47)
[2021-06-12 16:07] VITALS: BP_SYST 148
[2021-06-12] MEDS ORDERED: EPOETIN ALFA 20,000 UNITS/ML VIAL SUBCUT ONE (16:30)
[2021-06-12] MEDS: AZITHROMYCIN 500 MG in NS 250 ML IV SCH (17:13)
--- NOTE | 2021-06-12 18:59 | NUR ---
CLOSING NOTES: PATIENT EATING DINNER. NO S/S OF ACUTE DISTRESS NOTED. IV AT LEFT HAND INFUSING WELL. FALL AND SAFETY MEASURES RENDERED. WILL CONTINUE MONITOR UNTIL ENDORSE TO CREDIT REPORTER RN.
--- NOTE | 2021-06-12 19:10 | NUR ---
RECEIVED BEDSIDE REPORT. PT IN BED RESTING AWAKE. RR EVEN AND UNLABORED ON 2L NC. PT DENIES PAIN AND SOB AT THIS TIME. CALL LIGHT WITHIN REACH. BED LOCKED IN LOWEST POSITION. PT AMBULATORY AND EDUCATED TO USE CALL LIGHT IF HE NEEDS ASSISTANCE. WILL CONTINUE TO MONITOR.
[2021-06-12 22:22] VITALS: BP_SYST 164
[2021-06-12] MEDS: TEMAZEPAM 15 MG CAPSULE PO PRN (22:25)
[2021-06-13] VITALS (7 sets, daily range): BP systolic 135–163
--- NOTE | 2021-06-13 01:30 | NUR ---
PT REQUESTED TO HAVE C-PAP OFF AND JUST USE 2L NC. PT TOLERATED WELL. RT WAS UPDATED. ALL OTHER NEEDS MEET AT THIS TIME.
[2021-06-13] MEDS: IPRATROPIUM/ALBUTEROL SULFATE 3 ML AMPUL.NEB (DUONEB) INH SCH ×6 (03:00→23:00)
[2021-06-13] MEDS: PIPERACILLIN/TAZO 2.25G/DEX-IS 50 ML IV SCH ×3 (05:41→22:06)
[2021-06-13 07:05] LABS: BASOPHILS # (AUTO) 0.1 K/uL (0.0-0.2); BASOPHILS % (AUTO) 0.7 % (0.0-2.0); EOSINOPHILS # (AUTO) 0.5 K/uL (0.0-0.4); EOSINOPHILS % (AUTO) 6.1 % (0.0-4.0); HEMATOCRIT 24.5 % (36-54); HEMOGLOBIN 8.3 g/dL (14.0-18.0); LYMPHOCYTES % (AUTO) 12.4 % (20.5-51.5); MEAN CORPUSCULAR HEMOGLOBIN 31 pg (27-31); MEAN CORPUSCULAR HGB CONC 34 % (32-36); MEAN CORPUSCULAR VOLUME 90 fL (79.0-98.0); MONOCYTES % (AUTO) 12.5 % (1.7-9.3); NEUTROPHILS # (AUTO) 5.4 K/uL (1.8-7.7); NEUTROPHILS % (AUTO) 68.3 % (40.0-70.0); PLATELET COUNT (AUTO) 203 K/uL (130-430); RED BLOOD CELL COUNT(AUTO) 2.72 MIL/uL (4.2-6.2)
--- NOTE | 2021-06-13 07:15 | NUR ---
endorsed care to day rn
[2021-06-13 07:18] LABS: CALCIUM 7.7 mg/dL (8.4-11.0); CREATININE 6.57 mg/dL (0.55-1.30); POTASSIUM 4.3 mmol/L (3.5-5.1)
--- NOTE | 2021-06-13 08:05 | NUR ---
OPENING NOTES: PATIENT EATING BREAKFAST. BREATHING EVEN AND NON LABORED. DENIES ANY DISCOMFORT AT THIS TIME. FALL AND SAFETY MEASURES REINFORCED. WILL CONTINUE MONITOR PATIENT.
[2021-06-13] MEDS: NEPHROVITE, (FOLIC ACID/VITAMIN B COMP W-C 1 TAB) PO SCH (08:21)
[2021-06-13] MEDS: amLODIPine BESYLATE 10 MG TABLET PO SCH (08:21)
[2021-06-13] MEDS: ATORVASTATIN 20 MG TABLET PO SCH (08:22)
[2021-06-13] MEDS: CARVEDILOL 12.5 MG TABLET (COREG) PO SCH ×2 (08:22→22:06)
[2021-06-13] MEDS: PANTOPRAZOLE SODIUM 40 MG TAB PO SCH ×2 (08:22→22:05)
[2021-06-13] MEDS: hydrALAZINE HCL 25 MG TABLET PO SCH ×3 (08:23→22:05)
--- NOTE | 2021-06-13 13:30 | NUR ---
Hemodialysis: HD OUT 3L. NO S/S OF ACUTE DISTRESS NOTED. STABLE CONDITION.
[2021-06-13] MEDS: HEPARIN SODIUM,PORCINE 5,000 UNITS/ML VIAL MC PRN (14:26)
--- NOTE | 2021-06-13 16:03 | NUR ---
CM: s/w Charmaine, spouse: stated the pt was not vaccinated for Covid -19 , no DME , no home health. Upon discharge, the pt will need HD set up /dr. Davenport. DME: possible CPAP and nebulizer. >> The pt will have HD tonight. Home Health and HD set up on Monday dt pending TB Gold result.
--- NOTE | 2021-06-13 18:58 | NUR ---
CLOSING NOTES: PATIENT EATING DINNER. NO S/S OF ACUTE DISTRESS NOTED. IV AT LEFT HAND PATENT AND INFUSING WELL. FALL AND SAFETY MEASURES RENDERED. WILL CONTINUE MONITOR UNTIL ENDORSE TO GEOCHEMISTRY TEACHER RN.
--- NOTE | 2021-06-13 19:00 | NUR ---
RECEIVED BEDSIDE REPORT. PT SITTING UP IN BED RESTING. PT AOX4 ABLE TO MAKE NEEDS KNOWN. RR EVEN AND UNLABORED ON 2LNC. FAMILY AT BEDSIDE. PT DENIES PAIN AT THIS TIME. CALL LIGHT WITHIN REACH. BED RAILS UPX2. PT HAS BRP. ALL NEEDS MEET AT THIS TIME. WILL CONTINUE TO MONITOR.
[2021-06-13] MEDS: clonazePAM 0.5 MG TABLET PO PRN (22:09)
--- NOTE | 2021-06-14 00:15 | NUR ---
PT IN BED ASLEEP. PT HAS NC 2L. PT DOESN'T APPEAR TO BE IN PAIN. WILL CONTINUE TO MONITOR.
[2021-06-14] MEDS: MORPHINE 4 MG INJ. 4 MG/ML VIAL IVP PRN ×4 (01:28→22:02)
[2021-06-14 01:42] VITALS: BP_SYST 160
[2021-06-14] MEDS: IPRATROPIUM/ALBUTEROL SULFATE 3 ML AMPUL.NEB (DUONEB) INH SCH ×4 (05:23→23:00)
[2021-06-14] MEDS: PIPERACILLIN/TAZO 2.25G/DEX-IS 50 ML IV SCH ×2 (06:29→14:11)
[2021-06-14 06:39] LABS: BASOPHILS # (AUTO) 0.1 K/uL (0.0-0.2); BASOPHILS % (AUTO) 0.7 % (0.0-2.0); EOSINOPHILS # (AUTO) 0.4 K/uL (0.0-0.4); HEMATOCRIT 24.1 % (36-54); HEMOGLOBIN 8.1 g/dL (14.0-18.0); LYMPHOCYTES # (AUTO) 1.2 K/uL (1.0-5.5); LYMPHOCYTES % (AUTO) 11.6 % (20.5-51.5); MEAN CORPUSCULAR HEMOGLOBIN 30 pg (27-31); MEAN CORPUSCULAR HGB CONC 34 % (32-36); MEAN CORPUSCULAR VOLUME 90 fL (79.0-98.0); MONOCYTES # (AUTO) 1.2 K/uL (0.0-1.0); MONOCYTES % (AUTO) 11.2 % (1.7-9.3); NEUTROPHILS # (AUTO) 7.5 K/uL (1.8-7.7); NEUTROPHILS % (AUTO) 72.5 % (40.0-70.0); PLATELET COUNT (AUTO) 220 K/uL (130-430); RED BLOOD CELL COUNT(AUTO) 2.69 MIL/uL (4.2-6.2); RED CELL DISTRIBUTION WIDTH 14.3 % (9.0-15.0); WHITE BLOOD COUNT (AUTO) 10.4 K/uL (4.8-10.8)
[2021-06-14 07:25] LABS: CALCIUM 7.8 mg/dL (8.4-11.0); CREATININE 5.93 mg/dL (0.55-1.30); POTASSIUM 3.8 mmol/L (3.5-5.1)
--- NOTE | 2021-06-14 08:05 | NUR ---
INITIAL ROUNDS Received pt AAOx4, no s/s resp distress, c/o pain to abd-will check on pain medications. Pt on contact isolation for MRSA of Nares. Plan of care for the day reviewed with pt-pt verbalized his understanding. Pain management, disease process, skin and safety discussed-teach back done. Call light within reach.
[2021-06-14 09:00] VITALS: BP_SYST 161
[2021-06-14] MEDS ORDERED: EPOETIN ALFA 10,000 UNITS/ML VIAL SUBCUT SCH (09:00)
[2021-06-14] MEDS: PANTOPRAZOLE SODIUM 40 MG TAB PO SCH ×2 (09:01→20:32)
[2021-06-14] MEDS: ATORVASTATIN 20 MG TABLET PO SCH (09:01)
[2021-06-14] MEDS: NEPHROVITE, (FOLIC ACID/VITAMIN B COMP W-C 1 TAB) PO SCH (09:01)
[2021-06-14] MEDS: clonazePAM 0.5 MG TABLET PO PRN (09:04)
[2021-06-14] MEDS: amLODIPine BESYLATE 10 MG TABLET PO SCH (09:05)
[2021-06-14] MEDS: hydrALAZINE HCL 25 MG TABLET PO SCH ×3 (09:05→20:31)
[2021-06-14] MEDS: CARVEDILOL 12.5 MG TABLET (COREG) PO SCH ×2 (09:06→20:32)
[2021-06-14 11:29] VITALS: BP_SYST 162
--- NOTE | 2021-06-14 13:09 | NUR ---
Patient is accepted at [facility]-Scheduled for [facility] at 2PM-6PM. Address:[address] [place] [address],[facility] [id number]. . Patient will need permacath to be accepted at [facility]. RN to notify Dr Reynolds of need for permacath.
[2021-06-14 16:07] VITALS: BP_SYST 184
[2021-06-14] MEDS: NIFEDIPINE 90 MG TABLET.SA (PROCARDIA XL 90 MG) PO SCH (17:49)
--- NOTE | 2021-06-14 18:16 | NUR ---
CLOSING NOTE Pt resting quietly in bed with no s/s resp distress, no c/o pain or discomfort. Contact isolation maintained throughout shift. Needs met, call light within reach.
[2021-06-14 20:00] VITALS: BP_SYST 156
[2021-06-15] VITALS: BP_SYST 152
[2021-06-15] MEDS: clonazePAM 0.5 MG TABLET PO PRN (01:30)
--- NOTE | 2021-06-15 02:47 | NUR ---
Patient in bed asleep. No acute distress noted. Will continue to monitor.
[2021-06-15] MEDS: IPRATROPIUM/ALBUTEROL SULFATE 3 ML AMPUL.NEB (DUONEB) INH SCH ×6 (03:00→23:53)
[2021-06-15] MEDS: MORPHINE 4 MG INJ. 4 MG/ML VIAL IVP PRN ×2 (05:18→12:49)
--- NOTE | 2021-06-15 05:28 | NUR ---
CONSULT: CONSULT CALLED FOR [facility] REASON FOR CONSULT: PERMACATH PLACEMENT REQUESTING CONSULT: DR. GARCIA PROVIDER NETWORK MANAGER PHONE NUMBER: [phone] SIDE LASTER HANG UP ON ME WHEN I ASKED HIS NAME
[2021-06-15 06:32] LABS: BASOPHILS # (AUTO) 0.1 K/uL (0.0-0.2); BASOPHILS % (AUTO) 0.7 % (0.0-2.0); CALCIUM 8.1 mg/dL (8.4-11.0); CREATININE 6.79 mg/dL (0.55-1.30); EOSINOPHILS # (AUTO) 0.5 K/uL (0.0-0.4); EOSINOPHILS % (AUTO) 4.9 % (0.0-4.0); HEMATOCRIT 26.5 % (36-54); LYMPHOCYTES # (AUTO) 1.1 K/uL (1.0-5.5); LYMPHOCYTES % (AUTO) 10.8 % (20.5-51.5); MEAN CORPUSCULAR HEMOGLOBIN 31 pg (27-31); MEAN CORPUSCULAR HGB CONC 34 % (32-36); MEAN CORPUSCULAR VOLUME 91 fL (79.0-98.0); MONOCYTES % (AUTO) 9.7 % (1.7-9.3); NEUTROPHILS # (AUTO) 7.6 K/uL (1.8-7.7); NEUTROPHILS % (AUTO) 73.9 % (40.0-70.0); PLATELET COUNT (AUTO) 237 K/uL (130-430); POTASSIUM 3.8 mmol/L (3.5-5.1); RED BLOOD CELL COUNT(AUTO) 2.93 MIL/uL (4.2-6.2); RED CELL DISTRIBUTION WIDTH 14.6 % (9.0-15.0); WHITE BLOOD COUNT (AUTO) 10.3 K/uL (4.8-10.8)
[2021-06-15 07:50] VITALS: BP_SYST 144
--- NOTE | 2021-06-15 08:00 | NUR ---
am notes received pt in bed.a/ox4. denies any pain or sob. res even and unlabored. vitals stable . safety and fall precautions in place and maintained. bed locked and in low poc discussed with pt.verbalized understanding. needs attended. will continue to monitor
[2021-06-15] MEDS: ATORVASTATIN 20 MG TABLET PO SCH (08:54)
[2021-06-15] MEDS: CARVEDILOL 12.5 MG TABLET (COREG) PO SCH ×2 (08:55→20:27)
[2021-06-15] MEDS: NEPHROVITE, (FOLIC ACID/VITAMIN B COMP W-C 1 TAB) PO SCH (08:55)
[2021-06-15] MEDS: hydrALAZINE HCL 25 MG TABLET PO SCH ×3 (08:56→20:30)
[2021-06-15] MEDS: PANTOPRAZOLE SODIUM 40 MG TAB PO SCH ×2 (08:56→20:27)
[2021-06-15 12:52] VITALS: BP_SYST 148
--- NOTE | 2021-06-15 13:51 | NUR ---
rounds pt stable not in acute distress. vitals stable. pain better after pain med. 11/28. not in acute distress. will continue to monitor
[2021-06-15 16:11] VITALS: BP_SYST 139
--- NOTE | 2021-06-15 17:45 | NUR ---
HEMODIALYSIS DIALYSIS NURSE HERE .PT IS HAVING HEMODIALYSIS . TOLERATING WELL. NO S/S OF ACUTE DISTRESS NOTED. WILL CONTINUE TO MONITOR
[2021-06-15] MEDS: NIFEDIPINE 90 MG TABLET.SA (PROCARDIA XL 90 MG) PO SCH (18:00)
--- NOTE | 2021-06-15 18:54 | NUR ---
closing notes pt stable . continue on dialysis .pt tolerating well. not in acute distress.needs attended will report to night nurse
[2021-06-15 20:00] VITALS: BP_SYST 171
[2021-06-15] MEDS: TEMAZEPAM 15 MG CAPSULE PO PRN (20:26)
[2021-06-16] VITALS (8 sets, daily range): BP systolic 128–163
[2021-06-16] MEDS: MORPHINE 4 MG INJ. 4 MG/ML VIAL IVP PRN ×5 (01:38→21:08)
[2021-06-16] MEDS: IPRATROPIUM/ALBUTEROL SULFATE 3 ML AMPUL.NEB (DUONEB) INH SCH ×6 (03:00→22:50)
--- NOTE | 2021-06-16 04:10 | NUR ---
Patient's current assessment unchanged.
--- NOTE | 2021-06-16 08:30 | NUR ---
0830: Received pt A+Ox4 laying in bed at 0700. IV noted to L arm-SL. Pt c/o pain /10 to abd/chest- requesting pain medications- not time. CSMW satisfactory. No headache/dizziness. Edema noted to legs and arms bilat. Lungs clear/ No SOB/cough noted. O2 95% RA. Tele insitu. BS x4. LBM Oct . Void- QS. No N+V. No skin concerns. IND. VSS. Med accepting. NPO for procedure. Will continue to monitor. 0900: Pt c/o SOB and requesting O2 be turned on, however 96% RA. Pt states he feels anxious about permacath procedure. Will continue to monitor.
[2021-06-16] MEDS: PANTOPRAZOLE SODIUM 40 MG TAB PO SCH ×2 (08:32→21:05)
[2021-06-16] MEDS: ATORVASTATIN 20 MG TABLET PO SCH (08:32)
[2021-06-16] MEDS: NEPHROVITE, (FOLIC ACID/VITAMIN B COMP W-C 1 TAB) PO SCH (08:32)
[2021-06-16] MEDS: CARVEDILOL 12.5 MG TABLET (COREG) PO SCH ×2 (08:33→21:06)
[2021-06-16] MEDS: hydrALAZINE HCL 25 MG TABLET PO SCH ×3 (08:34→21:05)
--- NOTE | 2021-06-16 13:10 | NUR ---
Spoke with Dr. Porter- OR cancelled for today as no OR space. Dr. Romo try for monday. Pt able to resume diet- kitchen called and ordered pt a late lunch.
--- NOTE | 2021-06-16 16:42 | NUR ---
Nutrition F/U: RD reviewed pt's current EMR record including diet Hx, physician notes, nursing notes, pertinent labs/meds/procedures, care trends, and care activity. Admitting Diagnosis : Chest pain Medical History Comment: HTN, Hyperlipidemia, CHF, Renal failure, Covid infection, Methamphetamine abuse per MD notes Pt also found w/ acute hypoxemic respiratory failure and sepsis per MD notes SARS-CoV- 2 Ag (Rapid) Negative 06/06 SARS-CoV- 2 (PCR) Negative 06/[address] visited pt at bedside, provided diet education on current diet order and answered pt's questions and concerns regarding diet. Pt verbally acknowledged. BM yester day per primary nurse. EMR reviewed, Jignesh scale of 19, skin intact. 2+ Pitting edema on BLE. Plan prior discharge to perform kidney biopsy. HD status, with good PO intake of 75-100%, 100% most meals. Abdomen is soft, bowel sound active, and pt is ambulatory. Current Diet Order/Nutrition Support Cardiac, Renal diet x 0 day. Patient/Significant Other Unable To Verbalize Education Provided Not Indicated Pertinent Medications Zofran, Protonix, nephrovite, Lipitor, coreg. Pertinent Labs : (06/15) reviewed. BUN 61H, CR 6.79, BG 100H, Ca 8.1L GFR 10L. Height (Feet) 5 feet Height (Inches) 11.00 inches Weight (Pounds) 255 pounds Weight (Calculated Kilograms) 115.161220 kilograms Patient Weight 115.666 kg Body Mass Index 35.56 kg/m2 %IBW: 148 [place]/Adjusted Body Weight: [place] 172#/78kg--- Adjust 193#/88kg Recent Weight Change: Unable to verify Weight Status : Obese Gastrointestinal Symptoms None Last BM 06/15/21 Food Allergies unable to verify Usual Diet At Home : Low salt diet per documented RN Current % PO Good (75-100%) Estimated Energy Expenditure (kcals/day) 8908-9361 (30-35 kcal/kg Adjust BW d/t dialysis) Estimated Protein Required (g/day) 88-114g (1.0-1.3 gm/kg Adjust BW d/t dialysis) Estimated Fluid Required (l/day) Per MD (Renal failure, CHF) Problem/Etiology/Signs/Symptoms Altered nutrition related labs related to renal dysfunction as evidenced by abnormal BUN 61H, CR 6.79H (*on going) Expected Outcomes/Goals Monitor PO intake and appetite w/goal of pt is meeting at least 75% of estimated nutritional needs, lab trending WNL, normal GI function, skin integrity w/wt maintenance. Dietitian Recommendations * Recommend to continue cardiac, renal diet. Follow Up Low Risk: F/U in 7 days Follow Up By 06/23/2021
--- NOTE | 2021-06-16 16:51 | NUR ---
Dietitian Recommendations * Recommend to continue cardiac, renal diet. Please refer to nutrition assessment for details. CN,MARSHA
[2021-06-16] MEDS: EPOETIN ALFA 10,000 UNITS/ML VIAL SUBCUT SCH (16:54)
[2021-06-16] MEDS: NIFEDIPINE 90 MG TABLET.SA (PROCARDIA XL 90 MG) PO SCH (17:24)
--- NOTE | 2021-06-16 17:34 | NUR ---
SHIFT END NOTE: Pt resting in bed. Pain medication administered per MAR, pt now comfortable. Family at bedside. Conversation/education discussed with family and pt regarding renal diet/fluid restriction. No voiced concerns. Will continue to monitor.
[2021-06-16] MEDS: TEMAZEPAM 15 MG CAPSULE PO PRN (22:51)
[2021-06-17] MEDS: MORPHINE 4 MG INJ. 4 MG/ML VIAL IVP PRN (02:37)
[2021-06-17] MEDS: IPRATROPIUM/ALBUTEROL SULFATE 3 ML AMPUL.NEB (DUONEB) INH SCH ×6 (03:00→23:56)
[2021-06-17 06:22] LABS: BASOPHILS % (AUTO) 0.5 % (0.0-2.0); EOSINOPHILS # (AUTO) 0.3 K/uL (0.0-0.4); HEMATOCRIT 26.9 % (36-54); HEMOGLOBIN 9.2 g/dL (14.0-18.0); LYMPHOCYTES # (AUTO) 1.1 K/uL (1.0-5.5); LYMPHOCYTES % (AUTO) 12.2 % (20.5-51.5); MEAN CORPUSCULAR HEMOGLOBIN 31 pg (27-31); MEAN CORPUSCULAR HGB CONC 34 % (32-36); MEAN CORPUSCULAR VOLUME 91 fL (79.0-98.0); MONOCYTES # (AUTO) 0.7 K/uL (0.0-1.0); MONOCYTES % (AUTO) 7.5 % (1.7-9.3); NEUTROPHILS # (AUTO) 7.1 K/uL (1.8-7.7); NEUTROPHILS % (AUTO) 76.8 % (40.0-70.0); PLATELET COUNT (AUTO) 223 K/uL (130-430); RED BLOOD CELL COUNT(AUTO) 2.97 MIL/uL (4.2-6.2); WHITE BLOOD COUNT (AUTO) 9.3 K/uL (4.8-10.8)
[2021-06-17 06:36] LABS: CALCIUM 8.5 mg/dL (8.4-11.0); CREATININE 6.79 mg/dL (0.55-1.30); POTASSIUM 4.1 mmol/L (3.5-5.1)
--- NOTE | 2021-06-17 07:30 | NUR ---
OPENING NOTES: PATIENT EATING BREAKFAST. BREATHING EVEN AND NON LABORED. DENIES ANY DISCOMFORT AT THIS TIME. FALL SAFETY AND ASPIRATION MEASURES REINFORCED. WILL CONTINUE MONITOR PATIENT.
[2021-06-17] MEDS: PANTOPRAZOLE SODIUM 40 MG TAB PO SCH ×3 (08:35→21:11)
[2021-06-17] MEDS: ATORVASTATIN 20 MG TABLET PO SCH (08:36)
[2021-06-17] MEDS: NEPHROVITE, (FOLIC ACID/VITAMIN B COMP W-C 1 TAB) PO SCH (08:36)
[2021-06-17] MEDS: hydrALAZINE HCL 25 MG TABLET PO SCH ×3 (08:37→21:12)
[2021-06-17] MEDS: CARVEDILOL 12.5 MG TABLET (COREG) PO SCH ×2 (08:37→21:11)
[2021-06-17 08:53] VITALS: BP_SYST 151
[2021-06-17 12:56] VITALS: BP_SYST 144
[2021-06-17] MEDS: HEPARIN SODIUM,PORCINE 5,000 UNITS/ML VIAL MC PRN (13:19)
--- NOTE | 2021-06-17 14:20 | NUR ---
RN notes/ HD DONE: HEMODIALYSIS AT BEDSIDE DONE. HD OUT 3L. NO S/S OF ACUTE DISTRESS NOTED.
[2021-06-17] MEDS: ACETAMINOPHEN 325 MG TABLET PO PRN (15:23)
[2021-06-17 16:30] VITALS: BP_SYST 142
[2021-06-17] MEDS ORDERED: PANTOPRAZOLE SODIUM 40 MG/VIAL (PROTONIX) IVP ONE (16:30)
[2021-06-17] MEDS: traMADol HCL HCL 50 MG TABLET (ULTRAM) PO PRN ×2 (17:19→23:20)
[2021-06-17] MEDS: NIFEDIPINE 90 MG TABLET.SA (PROCARDIA XL 90 MG) PO SCH (17:38)
--- NOTE | 2021-06-17 19:15 | NUR ---
OPENING NOTES: Received patient report from morning shift nurse. Patient in bed, AAOx4, breathing evenly and nonlabored on room air, no s/s of distress. Patient has an IV on the RAC 22G, patent, benign, and flushing. No s/s of infection. Educated patient on plan of care and call light use. Patient verbalized understanding with return demonstration. Fall/safety/isolation precaution. Will continue to monitor.
--- NOTE | 2021-06-17 19:33 | NUR ---
CLOSING NOTES: PATIENT RESTING IN BED. BREATHING EVEN AND NON LABORED TO RA. BED LOCKED, ALARM ON AND IN LOWEST POSITION. FALL SAFETY AND ASPIRATION MEASURES REINFORCED. CALL LIGHT WITHIN REACH.
[2021-06-17 20:00] VITALS: BP_SYST 150
--- NOTE | 2021-06-18 | NUR ---
PATIENT NPO PER DR. RADHA GONZALEZ.
[2021-06-18 00:48] VITALS: BP_SYST 135
[2021-06-18] MEDS: IPRATROPIUM/ALBUTEROL SULFATE 3 ML AMPUL.NEB (DUONEB) INH SCH ×6 (03:00→23:00)
[2021-06-18 06:15] LABS: BASOPHILS # (AUTO) 0.1 K/uL (0.0-0.2); BASOPHILS % (AUTO) 1.7 % (0.0-2.0); EOSINOPHILS # (AUTO) 0.2 K/uL (0.0-0.4); EOSINOPHILS % (AUTO) 2.9 % (0.0-4.0); HEMATOCRIT 27.5 % (36-54); HEMOGLOBIN 9.2 g/dL (14.0-18.0); LYMPHOCYTES # (AUTO) 1.1 K/uL (1.0-5.5); MEAN CORPUSCULAR HEMOGLOBIN 30 pg (27-31); MEAN CORPUSCULAR HGB CONC 33 % (32-36); MEAN CORPUSCULAR VOLUME 91 fL (79.0-98.0); MONOCYTES # (AUTO) 0.7 K/uL (0.0-1.0); MONOCYTES % (AUTO) 9.1 % (1.7-9.3); NEUTROPHILS # (AUTO) 5.6 K/uL (1.8-7.7); NEUTROPHILS % (AUTO) 72.3 % (40.0-70.0); PLATELET COUNT (AUTO) 205 K/uL (130-430); RED BLOOD CELL COUNT(AUTO) 3.04 MIL/uL (4.2-6.2); RED CELL DISTRIBUTION WIDTH 15.1 % (9.0-15.0); WHITE BLOOD COUNT (AUTO) 7.7 K/uL (4.8-10.8)
--- NOTE | 2021-06-18 07:01 | NUR ---
CLOSING NOTES: Patient in bed, AAOx4, breathing evenly and nonlabored on room air, no s/s of distress. Patient has an IV on the RAC 22G, patent, benign, and flushing. No s/s of infection. NPO MAINTAINED. Fall/safety/isolation precaution. Will continue to monitor and endorse care to morning shift nurse.
[2021-06-18 07:02] LABS: ALBUMIN 2.7 g/dL (3.4-4.8); CALCIUM 8.2 mg/dL (8.4-11.0); CREATININE 5.88 mg/dL (0.55-1.30); TOTAL BILIRUBIN 0.3 mg/dL (0.0-1.0)
--- NOTE | 2021-06-18 07:45 | NUR ---
Opening Notes Patient is awake, alert and oriented x4. No resp distress noted. Breathing is even and unlabored. Pt denies any cough/SOB/sore throat. Pt is c/o general body pain, 7/10, requesting pain meds. Pt remains NPO at this time. Pt is scheduled for tunneled dialysis placement with Dr. Porter today. Will follow up with OR about surgery time. IV site on left AC 20 gauge intact at this time. Pt is noted with right IJ suzanna catheter, dressing clean and dry. All needs met at this time. Safety and fall precautions in place. Bed in lowest position, locked. Will continue to monitor.
[2021-06-18 08:00] VITALS: BP_SYST 142
--- NOTE | 2021-06-18 08:54 | NUR ---
ATTENDING MD DR GARCIA WAS CALLED, RE: PAIN MEDICATION. SPOKE TO JAMES.
[2021-06-18] MEDS: PANTOPRAZOLE SODIUM 40 MG TAB PO SCH ×4 (09:00→21:00)
[2021-06-18] MEDS: NEPHROVITE, (FOLIC ACID/VITAMIN B COMP W-C 1 TAB) PO SCH (09:28)
[2021-06-18] MEDS: CARVEDILOL 12.5 MG TABLET (COREG) PO SCH ×2 (09:29→20:18)
[2021-06-18] MEDS: ATORVASTATIN 20 MG TABLET PO SCH (09:29)
[2021-06-18] MEDS: hydrALAZINE HCL 25 MG TABLET PO SCH ×3 (09:29→20:18)
--- NOTE | 2021-06-18 09:45 | NUR ---
Medication Pass Per maria m Braun to give morning medications with small sips of water.
[2021-06-18] MEDS ORDERED: CHOLECALCIFEROL (VITAMIN D3) 2,000 UNIT TABLET PO ONE (10:00)
[2021-06-18] MEDS ORDERED: VITD2000 PO (10:10)
[2021-06-18] MEDS ORDERED: NEPH PO (10:10)
[2021-06-18] MEDS ORDERED: LIP20 PO (10:10)
[2021-06-18] MEDS ORDERED: COR12.5 PO (10:10)
[2021-06-18] MEDS ORDERED: PRO40 PO (10:10)
[2021-06-18] MEDS ORDERED: NIFE90TA24 PO (10:10)
[2021-06-18] MEDS ORDERED: HYDR-4038 PO (10:10)
[2021-06-18] MEDS ORDERED: CAT3PAT TD (10:10)
[2021-06-18 12:00] VITALS: BP_SYST 144
--- NOTE | 2021-06-18 12:00 | NUR ---
Notes Patient is laying in bed, resting at this time. Alert and oriented x4. No resp distress noted. Pt remains on 2 liters via NC, tolerating well. Pt is saturating well on RA,97%. Oxygen is for comfort. Pt denies any pain at this time. Pending surgery. Pt remains NPO.
[2021-06-18] MEDS: LORazepam 2 MG/ML VIAL IVP PRN ×2 (12:04→20:19)
--- NOTE | 2021-06-18 12:04 | NUR ---
Ativan 1 mg IVP x anxiety Patient is anxious at this time, requesting medication. Administered Ativan 1 mg IVP, tolerated well. Will continue to monitor. Addendum: 06/18/21 at 1325 by Audra Hayes RN 1250: Notified surgery RN about Ativan administration.
[2021-06-18] MEDS ORDERED: HEPARIN SODIUM,PORCINE 5,000 UNITS/ML VIAL ONE ×3 (12:18→13:56)
--- NOTE | 2021-06-18 12:56 | NUR ---
Transferred to OR Patient is awake, alert and oriented x4. No resp distress noted. Breathing is even and unlabored. Pt remains on 3 liters via NC, tolerating well. Pt is on oxygen for comfort. Patient transferred via bed to OR with surgery team. No acute distress. Will wait for return.
[2021-06-18] MEDS ORDERED: CEFAZOLIN 1 GM IVPB PREMIX 100 ML IV ONE (13:07)
[2021-06-18] MEDS ORDERED: HYDROmorphone 1 MG/ML INJ. CARTRIDGE IVP PRN ×2 (13:30)
[2021-06-18] MEDS ORDERED: LABETALOL 100 MG/ 20ML VIAL IVP PRN (13:30)
[2021-06-18] MEDS: NACL 0.9% 1,000 ML IV SCH (13:30)
[2021-06-18] MEDS ORDERED: METOCLOPRAMIDE HCL 10 MG/2 ML VIAL IVP PRN (13:30)
[2021-06-18] MEDS ORDERED: hydrALAZINE HCL 20 MG/ML VIAL IVP PRN (13:30)
[2021-06-18] MEDS ORDERED: MEPERIDINE HCL/PF 25 MG/ML DISP.SYRIN IVP PRN (13:30)
[2021-06-18] MEDS ORDERED: MIDAZOLAM HCL 5 MG/ML VIAL (VERSED) IV ONE (13:56)
[2021-06-18] MEDS ORDERED: NS 1000 ML IV.SOLN IV ONE (13:56)
[2021-06-18] MEDS ORDERED: NS 50 ML BAG IV ONE (13:56)
[2021-06-18] MEDS ORDERED: WATER FOR IRRIGATION,STERILE 1,000 ML IRRIG.SOLN IR ONE (13:56)
[2021-06-18] MEDS ORDERED: fentaNYL CITRATE/PF 100 MCG/2 ML AMP ONE (13:56)
[2021-06-18] MEDS ORDERED: DEXAMETHASONE SOD PHOSPHATE 4 MG/ML VIAL ONE (13:56)
[2021-06-18] MEDS ORDERED: SEVOFLURANE 15 MIN GAS INH ONE (13:56)
[2021-06-18] MEDS ORDERED: LIDOCAINE 1% 10 MG/ML, 20 ML MDV ONE (13:56)
[2021-06-18] MEDS ORDERED: ONDANSETRON HCL 4 MG/2 ML VIAL ONE (13:56)
[2021-06-18] MEDS ORDERED: PROPOFOL 200MG/ 20ML VIAL (DIPRIVAN) IV ONE (13:56)
--- NOTE | 2021-06-18 14:00 | NUR ---
Patient is still in surgery at this time.
--- NOTE | 2021-06-18 15:15 | NUR ---
Received report from JOSEE Cardozo OR for continuity of care.
--- NOTE | 2021-06-18 15:22 | NUR ---
Back From Surgery/HIDA SCAN Patient is back from surgery, stable at this time. Alert and oriented x4, drowsy at this time. Pt remains on RA at this time. Vitals signs WNL. Pt denies any pain. Pt was educated that he will have a scheduled HIDA scan, to remain NPO. Nurse s/w Sy (Nuclear Med), will be here in 2-3 hours for the scan. Sy (Nuclear Med) [phone]
[2021-06-18 16:00] VITALS: BP_SYST 129
--- NOTE | 2021-06-18 16:00 | NUR ---
Notes Patient is sleeping at this time. No resp distress noted. Breathing is even and unlabored. Pt shows no signs of pain at this time. Pending HIDA scan. Pt remains NPO at this time.
--- NOTE | 2021-06-18 17:46 | NUR ---
ATTENDING MD DR GARCIA WAS CALLED, RE: TO ASK WHETHER DIET CAN BE RESUMED/THE TYPE OF DIET. SPOKE TO KATHY.
[2021-06-18] MEDS: NIFEDIPINE 90 MG TABLET.SA (PROCARDIA XL 90 MG) PO SCH (18:01)
[2021-06-18] MEDS: EPOETIN ALFA 10,000 UNITS/ML VIAL SUBCUT SCH (18:02)
--- NOTE | 2021-06-18 18:55 | NUR ---
Closing Notes Patient is awake, alert and oriented x4. No resp distress noted. Breathing is even and unlabored. Pt remains on RA at this time. Nasal cannula by bedside on 2 liters for comfort. Pt denies any pain at this time. IV site on left AC 20 gauge intact at this time, saline lock. Right upper hemodialysis catheter intact. Some redness noted. No active bleeding. Dressing intact. Pt is ambulatory, walking around his room, steady gait. Pending dictation for HIDA scan. Nurse s/w Dr. Underwood, obtained new orders to hold DC until tomorrow. Endorsed to Abhinav/JOSEE, PM nurse. All needs met at this time. Safety and fall precautions in place. Bed in lowest position, locked. Will continue to monitor.
[2021-06-18 19:00] VITALS: BP_SYST 139
--- NOTE | 2021-06-18 19:15 | NUR ---
change of shift.pt.presents isolation status;contact mrsa:nares.pt.presents quiescent affect;calm,resting.pt.presents h/d access location:rt.svc:perma-cath intact.pt.dialized;:06/17/21.pt.possible d/c home tonight;06/17/21;contingent upon results ct:scan;abd/pelvis.pt.capable to reposition self/ambulate unassisted.general status stable.respiratory status stable.unlabored @room air.call ligth/telephone w/in access of the pt.
--- NOTE | 2021-06-18 19:23 | NUR ---
For Case Management Patients mother has concerns about hemodialysis location. Per mother, "the location in [facility] might be too far. 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 I was wondering if there was another location closer to [place]." Nurse informed patients mother that she will endorse to next nurse to follow up with case management tomorrow. Endorsed to Abhinav/JOSEE.
[2021-06-18 20:00] VITALS: BP_SYST 139
[2021-06-18] MEDS: traMADol HCL HCL 50 MG TABLET (ULTRAM) PO PRN (20:20)
[2021-06-18] MEDS: NITROGLYCERIN 0.4 MG TAB.SUBL SL PRN ×2 (20:24→20:32)
--- NOTE | 2021-06-18 20:25 | NUR ---
pt.c/o pain;chest.i administered ntg 1tab.to assess the efficacy of the ntg medication per ntg protocol.
--- NOTE | 2021-06-18 20:30 | NUR ---
pt.assessed.pt.stated pain chest mitigated,present.i administered ntg sl #2 tab.to assess the efficacy per ntg protocol.
--- NOTE | 2021-06-18 20:35 | NUR ---
pt.assessed.pt.stated pain;chest resolved.no ntg sl administered.to continue to assess the pt.r/e;pain chest.per pain;chest,ntg administration protocol.
--- NOTE | 2021-06-18 21:00 | NUR ---
2100pmedications administered.pt.had requested medication:anxiety.i have administered ativan;1mg ivp.to assess the efficacy of the medication per protocol.pt.requested snacks provided.call light/telephone w/in access of the pt.i have re-established the iv access:location:rt.adali;#24g
--- NOTE | 2021-06-18 22:00 | NUR ---
pt.assessed.pt.presents quiescent affect;calm,somnolent.per flacc pain mgx pt.absent facial grimaces/body posturing. urinal inspected vacant;no urine produced.urinal w/in access of the pt.pt.capable to reposition self.call light/telephone w/in access of the pt.
[2021-06-19] VITALS: BP_SYST 135
--- NOTE | 2021-06-19 | NUR ---
pt.assessed.v/s assessed values wnl.no c/o pain,nausea.no requests posited@this hour.rt.svc perma intact.iv access intact rt.hand.pt.capable to reposition self/ambulation.call light/telephone w/in access of the pt. Addendum: 06/19/21 at 0103 by Abhinav Quintero RN pt.anuric.no urine produced@this hour.
--- NOTE | 2021-06-19 02:00 | NUR ---
pt.assessed.pt.presents quiescent affect;calm,somnolent.per flacc pain mgx pt.absent facall grimaces/body posturing. pt.capable to reposition self.iv access intact.urinal w/in access of the pt.insected clean.no urine produce@this hour. call light/telephone w/in access of the pt.
[2021-06-19] MEDS: TEMAZEPAM 15 MG CAPSULE PO PRN (02:55)
[2021-06-19] MEDS: IPRATROPIUM/ALBUTEROL SULFATE 3 ML AMPUL.NEB (DUONEB) INH SCH ×3 (03:00→11:00)
--- NOTE | 2021-06-19 04:00 | NUR ---
pt.assessed.pt.presents quiescent affect;calm,resting.no c/o pain,nausea.pt.requested ice chips provided.pt.capable to reposition self.call light/telephone w/in access of the pt.urinal w/in access of the pt.no urine produced.@this hour.
[2021-06-19] MEDS: LORazepam 2 MG/ML VIAL IVP PRN (04:46)
--- NOTE | 2021-06-19 06:21 | NUR ---
pt.assessed.pt.presents quiescent affect;calm,resting.pt.had requested medication;anxiety.i administered ativan;1mg ivp.pt.had requested snacks/ice chips provided.no c/o pain,nausea.pt.capable to reposition self/ambulate unassisted.pt.weighed per h/d protocol.iv access intact;iv lock.call light/telephone w/in access of the pt.urinal w/in access of the pt.
--- NOTE | 2021-06-19 06:25 | NUR ---
i have reviewed fluids intake/comparisons w the pt.pt.requires additional fluids intake education.
[2021-06-19 08:00] VITALS: BP_SYST 123
[2021-06-19] MEDS: traMADol HCL HCL 50 MG TABLET (ULTRAM) PO PRN ×2 (08:31→14:31)
[2021-06-19] MEDS: NEPHROVITE, (FOLIC ACID/VITAMIN B COMP W-C 1 TAB) PO SCH (08:31)
[2021-06-19] MEDS: PANTOPRAZOLE SODIUM 40 MG TAB PO SCH ×2 (08:32→08:34)
[2021-06-19] MEDS: ATORVASTATIN 20 MG TABLET PO SCH (08:33)
[2021-06-19] MEDS: CARVEDILOL 12.5 MG TABLET (COREG) PO SCH (08:33)
[2021-06-19] MEDS: hydrALAZINE HCL 25 MG TABLET PO SCH ×2 (08:34→14:29)
[2021-06-19] MEDS ORDERED: CHOLECALCIFEROL (VITAMIN D3) 2,000 UNIT TABLET PO SCH (09:00)
[2021-06-19 12:00] VITALS: BP_SYST 129
[2021-06-19] MEDS: NACL 0.9% 1,000 ML IV SCH (14:13)
[2021-06-19] MEDS: clonazePAM 0.5 MG TABLET PO PRN (14:30)
[2021-06-19 16:07] VITALS: BP_SYST 136
--- NOTE | 2021-06-20 08:54 | NUR ---
disposition 01
== END 2021-06-19 17:10 | disposition home or self-care (01) | DRG 139 ==
LOC: SED 18:55 → STU 22:22 → SIC 06-07 19:43 → STU 06-10 16:21 → SIC 06-10 16:31 → STU 06-10 17:28
PROVIDERS: ADMIT Internal Medicine; ATTEND Internal Medicine
PROC: 5A1D70Z Performance of Urinary Filtration, Intermittent, Less than 6 Hours Per Day (ICD-10-PCS; 2021-06-08)
PROC: 02HV33Z Insertion of Infusion Device into Superior Vena Cava, Percutaneous Approach (ICD-10-PCS; principal; 2021-06-10)
PROC: B548ZZA Ultrasonography of Superior Vena Cava, Guidance (ICD-10-PCS; 2021-06-10)
PROC: 30233N1 Transfusion of Nonautologous Red Blood Cells into Peripheral Vein, Percutaneous Approach (ICD-10-PCS; 2021-06-10)
PROC: 5A1D70Z Performance of Urinary Filtration, Intermittent, Less than 6 Hours Per Day (ICD-10-PCS; 2021-06-11)
PROC: 5A09357 Assistance with Respiratory Ventilation, Less than 24 Consecutive Hours, Continuous Positive Airway Pressure (ICD-10-PCS; 2021-06-12)
PROC: 5A1D70Z Performance of Urinary Filtration, Intermittent, Less than 6 Hours Per Day (ICD-10-PCS; 2021-06-13)
PROC: 5A1D70Z Performance of Urinary Filtration, Intermittent, Less than 6 Hours Per Day (ICD-10-PCS; 2021-06-15)
PROC: 5A1D70Z Performance of Urinary Filtration, Intermittent, Less than 6 Hours Per Day (ICD-10-PCS; 2021-06-17)
PROC: 02PYX3Z Removal of Infusion Device from Great Vessel, External Approach (ICD-10-PCS; 2021-06-18)
PROC: 0JH63XZ Insertion of Tunneled Vascular Access Device into Chest Subcutaneous Tissue and Fascia, Percutaneous Approach (ICD-10-PCS; 2021-06-18)
PROC: 02HV33Z Insertion of Infusion Device into Superior Vena Cava, Percutaneous Approach (ICD-10-PCS; 2021-06-18)
PROC: B518ZZA Fluoroscopy of Superior Vena Cava, Guidance (ICD-10-PCS; 2021-06-18)
PROC: 5A1D70Z Performance of Urinary Filtration, Intermittent, Less than 6 Hours Per Day (ICD-10-PCS; 2021-06-19)
DX: J18.9 Pneumonia, unspecified organism (principal); N17.0 Acute kidney failure with tubular necrosis; J96.01 Acute respiratory failure with hypoxia; I50.43 Acute on chronic combined systolic (congestive) and diastolic (congestive) heart failure; E43 Unspecified severe protein-calorie malnutrition; I24.8 Other forms of acute ischemic heart disease; D63.8 Anemia in other chronic diseases classified elsewhere; I13.2 Hypertensive heart and chronic kidney disease with heart failure and with stage 5 chronic kidney disease, or end stage renal disease; N18.6 End stage renal disease; E78.5 Hyperlipidemia, unspecified; I25.10 Atherosclerotic heart disease of native coronary artery without angina pectoris; E66.9 Obesity, unspecified; Z20.822 Contact with and (suspected) exposure to COVID-19; F15.10 Other stimulant abuse, uncomplicated; G47.33 Obstructive sleep apnea (adult) (pediatric); Z79.899 Other long term (current) drug therapy; Z87.01 Personal history of pneumonia (recurrent); Z86.16 Personal history of COVID-19; Z83.3 Family history of diabetes mellitus; Z68.36 Body mass index [BMI] 36.0-36.9, adult; Z82.49 Family history of ischemic heart disease and other diseases of the circulatory system
CPT/HCPCS: 36415; 36600; 71045; 71250-TC; 76000; 76376; 76700-TC; 76770; 78226; 78579; 78580-TC; 80048; 80053; 80061; 80307; 81000; 82607; 82803-TC; 83540; 83550; 83690; 83735; 83880; 84100; 84156; 84484; 85025; 85379; 85610-TC; 85730-TC; 86480; 86706; 86803; 86886; 86900; 86901; 86920; 87040-TC; 87081; 87340; 90935; 90937; 93005; 93306; 93970; 94640; 94660; 94760; 99285; A9537; A9539; A9540; C1750; C9113; G0378; J0360; J0456; J0690; J0885; J1100; J1644; J1650; J2001; J2060; J2250; J2270; J2405; J2543; J2704; J3010; J3480; J7030; J7050; P9021; Q9964; U0003

== ENCOUNTER 2022-02-06 21:02 | Inpatient (IN) | payer MEDICAID ==
[~2022-02-06] VITALS: Ht 180.3 cm; Wt 108.9 kg
[~2022-02-06 21:02] MED LIST: CAT3PAT TD; COR12.5 PO; HYDR-4038 PO; LIP20 PO; NEPH PO; NIFE90TA24 PO; PRO40 PO; VITD2000 PO
[2022-02-06 21:10] VITALS: BP_SYST 144
--- NOTE | 2022-02-06 21:48 | NUR ---
Placed in room 2 . Placed on straw boss, blood pressure machine and pulse oximeter. To gown for exam. Side rails up. Report given to Herlinda TRIPP.
--- NOTE | 2022-02-06 22:00 | NUR ---
Pt ambulated to ED with c/o CP radiating to back accompanied by SOB with onset of earlier today. Pt PMH of HTN, ESRD and received HD MWF. Arrived to ED in no acute distress. Breathing adequately on RA. at bedside.
[2022-02-06 22:22] LABS: BASOPHILS # (AUTO) 0.1 K/uL (0.0-0.2); BASOPHILS % (AUTO) 0.6 % (0.0-2.0); EOSINOPHILS # (AUTO) 0.1 K/uL (0.0-0.4); EOSINOPHILS % (AUTO) 0.6 % (0.0-4.0); HEMATOCRIT 34.5 % (36-54); HEMOGLOBIN 11.9 g/dL (14.0-18.0); LYMPHOCYTES # (AUTO) 1.3 K/uL (1.0-5.5); LYMPHOCYTES % (AUTO) 10.2 % (20.5-51.5); MEAN CORPUSCULAR HEMOGLOBIN 32 pg (27-31); MEAN CORPUSCULAR HGB CONC 34 % (32-36); MEAN CORPUSCULAR VOLUME 91 fL (79.0-98.0); MONOCYTES # (AUTO) 0.9 K/uL (0.0-1.0); MONOCYTES % (AUTO) 7.3 % (1.7-9.3); NEUTROPHILS # (AUTO) 10.6 K/uL (1.8-7.7); NEUTROPHILS % (AUTO) 81.3 % (40.0-70.0); PLATELET COUNT (AUTO) 181 K/uL (130-430); RED BLOOD CELL COUNT(AUTO) 3.77 MIL/uL (4.2-6.2); RED CELL DISTRIBUTION WIDTH 13.5 % (9.0-15.0)
[2022-02-06 23:01] LABS: ALANINE AMINOTRANSFERASE 11 U/L (12-78); ALBUMIN 3.5 g/dL (3.4-4.8); ANION GAP 10 (5-15); ASPARTATE AMINOTRANSFERASE 12 U/L (10-37); CALCIUM 7.8 mg/dL (8.4-11.0); CHLORIDE 100 mmol/L (98-107); GLUCOSE 135 mg/dL (70-99); POTASSIUM 3.3 mmol/L (3.5-5.1); SODIUM SERUM 137 mmol/L (136-145); TOTAL BILIRUBIN 0.2 mg/dL (0.0-1.0); UREA NITROGEN, BLOOD 67 mg/dL (8-21)
[2022-02-06 23:03] LABS: CREATININE 8.95 mg/dL (0.55-1.30); GFR AFRICAN AMERICAN 8 mL/min (>90)
--- NOTE | 2022-02-06 23:48 | NUR ---
covid and mrsa swab done at bedside, sent to lab
[2022-02-07] MEDS ORDERED: NITROGLYCERIN 1 INCH (GM) OINT. TP ONE (00:30)
[2022-02-07] MEDS ORDERED: hydrALAZINE HCL 20 MG/ML VIAL IVP ONE (00:30)
--- NOTE | 2022-02-07 00:58 | NUR ---
dr. pablo called for peer to peer with CATHERINE swanson
[2022-02-07] MEDS ORDERED: NACL 0.9% 1,000 ML IV ONE ×2 (01:00)
--- NOTE | 2022-02-07 01:00 | NUR ---
# 22 gauge angiocath placed to L HAND. Use of asceptic technique. Opsite placed over site. Blood return noted. Flushed with 10 cc of normal saline. No evidence of infiltration noted. Patient tolerated well.
--- NOTE | 2022-02-07 01:09 | NUR ---
Admit bed requested Patient will be admitted to care of . Admitted to TELE unit. Diagnosis CHEST PAIN Inpatient (Yes or No) YES Observation (Yes or No) NO Orientation concerns or request close to nursing station (Yes or No) NO Covid Status NEGATIVE On vent or bipap NO Isolation requirements NO Needs a sitter NO From Home (Yes or if No enter name of facility) YES Requires Dialysis (Yes or No) DIALYSIS PT Med Rec Completed (Yes of No) PENDING
[2022-02-07] MEDS ORDERED: NITROGLYCERIN 0.4 MG TAB.SUBL SL ONE (01:15)
--- NOTE | 2022-02-07 03:45 | NUR ---
Pt resting comfortably in bed. No change in condition.
--- NOTE | 2022-02-07 07:19 | NUR ---
Received report from Herlinda TRIPP, assumed patient care.
--- NOTE | 2022-02-07 07:20 | NUR ---
Patient aroused easily and resting quietly. No acute distress noted. Vital signs within normal range.
--- NOTE | 2022-02-07 08:09 | NUR ---
Dr Ceballos at bedside examining pt
--- NOTE | 2022-02-07 08:11 | NUR ---
Pt A/Ox3, sitting upright, eating breakfast tray. NAD noted at this time.
[2022-02-07] MEDS ORDERED: ASPIRIN 81 MG TAB.CHEW PO SCH (09:00)
--- NOTE | 2022-02-07 09:28 | NUR ---
Pt reports he wants to be discharged so that he can go to dialysis appointment.
--- NOTE | 2022-02-07 09:43 | NUR ---
Patient A/Ox4, VSS, resp even and nonlabored. NAD noted. Patient was informed and educated that he was admitted to hospital. Patient states "I want to go home and go to my dialysis appointment and I feel better now. I don't want to use your resources." Kamaljit got dressed and stated that he wants to call his to come and pick him up. A call was made to admit MD to inform him on patient wanting to leave.
--- NOTE | 2022-02-07 10:00 | NUR ---
Patient does not wish to proceed with medical care recommended by Dr Underwood. Patient given information related to possible complications, up to and including , which could occur as a result of leaving hospital at this time. Patient verbalizes understanding of risks involved leaving against medical advice. Patient has signed AMA form. Patient A/Ox4, resp even and unlabored, IV cath withdrawn from patient's hand fully intact. Dressing applied. Nad noted at this time.
[2022-02-07 10:55] VITALS: BP_SYST 142
--- NOTE | 2022-02-09 14:20 | NUR ---
RECEIVED +[facility]SA CULTURE RESULT, DISCUSSED CASE WITH DR PARSONS AND CALLED, LEFT MESSAGE ON PTS PHONE TO RETURN CALL.
== END 2022-02-08 10:00 | disposition left against medical advice (07) | DRG 198 ==
LOC: SED 21:02 → STU 02-07 01:05
PROVIDERS: ADMIT Internal Medicine; ATTEND Internal Medicine
DX: I25.119 Atherosclerotic heart disease of native coronary artery with unspecified angina pectoris (principal); I12.0 Hypertensive chronic kidney disease with stage 5 chronic kidney disease or end stage renal disease; N18.6 End stage renal disease; I24.8 Other forms of acute ischemic heart disease; D63.8 Anemia in other chronic diseases classified elsewhere; E83.51 Hypocalcemia; R65.10 Systemic inflammatory response syndrome (SIRS) of non-infectious origin without acute organ dysfunction; R07.89 Other chest pain; Z20.822 Contact with and (suspected) exposure to COVID-19; E66.9 Obesity, unspecified; E78.5 Hyperlipidemia, unspecified; Z79.899 Other long term (current) drug therapy; Z99.2 Dependence on renal dialysis; Z68.33 Body mass index [BMI] 33.0-33.9, adult
CPT/HCPCS: 36415; 71045; 80053; 83880; 84484; 85025; 87081; 93005; 96361; 96374; 99285; G0378; J0360